=== PATIENT | male | born 1960 | race Caucasian/White ===

== ENCOUNTER 2020-04-27 19:45 | Observation (INO) | payer BC, SELFPAY ==
[2020-04-27] VITALS (14 sets, daily range): BP systolic 125–155; BP diastolic 92–110; PULSE 115–155; RESP 12–23; TEMP 36.5–36.8; O2SAT 97–100; BMI 35.1
--- NOTE | 2020-04-27 20:15 | ECG_ITS ---
Measurements Intervals [place] Rate: 118 P: [place]: 0 QRS: 9 QRSD: 98 T: 28 QT: 307 QTc: 430 Interpretive Statements ATRIAL FLUTTER/TACHYCARDIA WITH RAPID VENTRICULAR RESPONSE BASELINE ARTIFACT- I, III, AVR, AVL, AVF, V1 ABNORMAL ECG Electronically Signed On 04-28-2020 14:09:11 WASTEWATER ENGINEER by Saturnino Bowling D.O.
[2020-04-27 20:40] LABS: Basophils Absolute Auto 0.1 K/mm3 (0.0-0.1); Basophils Percent Auto 0.9 % (0.2-1.2); Eosinophils Percent Auto 0.5 % (0-4.4); Hematocrit 32.7 % (42.0-52.0); Hemoglobin 10.9 g/dL (14.0-18.0); Immature Granulocyte Absolute 0.04 K/mm3 (0.00-0.031); Immature Granulocyte Percent A 0.6 % (0-0.5); Lymphocytes Absolute Auto 2.12 K/mm3 (0.9-3.2); Lymphocytes Percent Auto 32.2 % (18.3-44.2); Mean Corpuscular HGB Conc 33.3 g/dl (32-36); Mean Corpuscular Hemoglobin 29.4 pg (26-34); Mean Corpuscular Volume 88.1 fl (80-100); Mean Platelet Volume 8.4 fl (7.4-10.4); Monocytes Absolute Auto 0.7 K/mm3 (0.1-0.6); Monocytes Percent Auto 10.8 % (2.6-8.5); Neutrophils Absolute Auto 3.6 K/mm3 (1.3-6.7); Platelet Count Result 260 k/mm3 (150-375); Red Blood Count 3.71 M/mm3 (4.6-6.20); White Blood Count 6.6 K/mm3 (4.5-10.0)
[2020-04-27 20:48] LABS: Prothrombin Time 13.6 Seconds (11.1-14.7)
[2020-04-27 20:49] LABS: Partial Thromboplastin Time 25.2 SECONDS (22.3-36.8)
[2020-04-27 20:53] LABS: Alanine Aminotransferase 31 U/L (4-50); Albumin Level 3.7 g/dL (3.5-5.1); Alkaline Phosphatase 77 U/L (38-126); Anion Gap 9 mmol/L (8-16); Aspartate Amino Transferase 46 U/L (17-59); Bilirubin,Total 0.8 mg/dL (0.2-1.3); Blood Urea Nitrogen 21 mg/dL (9-20); Calcium 8.7 mg/dL (8.4-10.2); Carbon Dioxide 27 mmol/L (22-30); Chloride 94 mmol/L (98-107); Estimated CRCL calculation 101 ml/min; Estimated Glomerular Filt Rate > 60; Glucose 141 mg/dL (75-110); Potassium 4.5 mmol/L (3.4-5.0); Sodium 130 mmol/L (137-145)
[2020-04-27] MEDS: SODIUM CHLORIDE 0.9% IV 1,000 ML 999 ML IV CONT (21:12)
--- NOTE | 2020-04-27 21:35 | ED.GENADULT ---
HPI - General Adult General Chief complaint: GI Bleed Stated complaint: Black stool Time Seen by Provider: 04/27/20 21:04 History of Present Illness HPI narrative: Patient is a 60-year-old gentleman who presents the emergency department with chief complaint of GI bleed. Patient reports he has history of a Deidre-en-Y gastric bypass and history of GI bleeds in the past. Patient states that today he started having black stool and then started feeling somewhat lightheaded particularly when he stands up. Patient states that this feels similar to when he has had GI bleeds in the past reports the last time he had to require several units of blood transfusion. Patient reports he is not on any anticoagulants Related Data Home Medications Medication Instructions Recorded Confirmed glimepiride 4 mg PO BID 04/27/20 lisinopril 20 mg PO DAILY 04/27/20 Allergies Allergy/AdvReac Type Severity Reaction Status Date / Time tetanus toxoid, adsorbed Allergy Hives Verified 04/27/20 20:40 Review of Systems Review of Systems: Narrative: A 10 system review of systems was completed on the patient and is negative except for what is stated in the HPI. Nursing and ancillary documentation was reviewed. PMFSH Comments Patient has history of hypertension and diabetes Surgical history significant for Deidre-en-Y gastric bypass Social history patient lives in [place] denies illicit drug use Exam Narrative: Exam Narrative: GENERAL: Well-appearing, well-nourished, and in no acute distress. HEAD: Normocephalic, atraumatic. EYES: PERRLA and EOMI. ENT: Nares clear, no rhinorrhea or epistaxis. Mucous membranes moist. NECK: Supple. CHEST: Clear to auscultation. No respiratory distress. HEART: Regular rate and rhythm. No murmur heard. Normal peripheral pulses. ABDOMEN: Soft, nontender, nondistended, normal active bowel sounds. Patient is guaiac positive on rectal exam EXTREMITIES: Normal range of motion. No edema. SKIN: Warm, dry, no rash. NEURO: No focal deficits. Alert and oriented x3. PSYCH: Normal mood and affect. Course Course Emergency Course: Patient's orthostatics showed that his heart rate went from 139 255 with standing. Patient was given a liter of normal saline for fluid resuscitation. Given his hemoglobin is currently 10 and we do not know his normal baseline hemoglobin Case was discussed with the hospitalist the patient will be admitted to the hospitalist service. Vital Signs Vital signs: Vital Signs Temperature 36.5 C 04/27/20 19:52 Pulse Rate 152 H 04/27/20 19:52 Respiratory Rate 16 04/27/20 19:52 Blood Pressure 155/100 H 04/27/20 19:52 Pulse Oximetry 100 04/27/20 19:52 Temperature 36.5 C 04/27/20 19:52 Pulse Rate 120 H 04/27/20 22:15 Respiratory Rate 18 04/27/20 22:15 Blood Pressure 146/110 H 04/27/20 22:05 Pulse Oximetry 100 04/27/20 22:15 Medical Decision Making Vital Signs Vital Signs: Vital Signs Temperature 36.5 C 04/27/20 19:52 Pulse Rate 152 H 04/27/20 19:52 Respiratory Rate 16 04/27/20 19:52 Blood Pressure 155/100 H 04/27/20 19:52 Pulse Oximetry 100 04/27/20 19:52 Temperature 36.5 C 04/27/20 19:52 Pulse Rate 120 H 04/27/20 22:15 Respiratory Rate 18 04/27/20 22:15 Blood Pressure 146/110 H 04/27/20 22:05 Pulse Oximetry 100 04/27/20 22:15 Lab Data Result diagrams: 04/27/20 21:51 04/27/20 20:30 Labs: Lab Results 04/27/20 04/27/20 04/27/20 Range/Units 20:27 20:27 20:30 WBC 6.6 (4.5-10.0) K/mm3 RBC 3.71 L (4.6-6.20) M/mm3 Hgb 10.9 L (14.0-18.0) g/dL Hct 32.7 L (42.0-52.0) % MCV 88.1 (80-100) fl MCH 29.4 (26-34) pg MCHC 33.3 (32-36) g/dl RDW 15.0 H (11.5-14.5) % Plt Count 260 (150-375) k/mm3 MPV 8.4 (7.4-10.4) fl Immature Gran % (Auto) 0.6 H (0-0.5) % Neut % (Auto) 55.0 (45.5-73.1) % Lymph % (Auto) 32.2 (18.3-44.2) % [place] % (Auto) 10.8
[2020-04-27 22:07] LABS: Hematocrit 32.6 % (42.0-52.0); Hemoglobin 10.9 g/dL (14.0-18.0)
--- NOTE | 2020-04-27 22:55 | ADMGEN ---
This patient, Richard Ramirez, was admitted to [facility] Surg Room 302-01. Patient/family oriented to hospital policies and general routines including ID bracelet, bed and alarms, visiting hours, pain management, procedures, bathroom and other care routines, personal items, smoking policy, room service/diet, and visiting hours. Information on how to activate the Rapid Response Team has been discussed. Patient/Family are encouraged to report perceived risks to care and to ask questions if they do not understand what they are told or what they should do.
--- NOTE | 2020-04-27 23:59 | ECG_ITS ---
Measurements Intervals [place] Rate: 129 P: [place]: 0 QRS: 10 QRSD: 97 T: 17 QT: 289 QTc: 424 Interpretive Statements ATRIAL FLUTTER/TACHYCARDIA WITH RAPID VENTRICULAR RESPONSE BASELINE ARTIFACT- I, II, III, AVR, AVL, AVF ABNORMAL ECG Electronically Signed On 04-28-2020 14:10:24 DETAIL SERGEANT by Saturnino Bowling D.O.
[2020-04-28] VITALS (19 sets, daily range): BP systolic 120–148; BP diastolic 74–94; PULSE 62–150; RESP 16–20; TEMP 36.4–36.8; O2SAT 95–100
--- NOTE | 2020-04-28 | ECHO_ITS ---
Patient Info Name: Richard Ramirez Age: 60 years : 1960 Gender: Male Ht: 71 in Wt: 251 lbs BSA: 2.43 m2 HR: 70 bpm BP: 134 / 81 mmHg Technical Quality: Good Exam Date: 04/28/2020 2:42 PM Exam Location: [facility] Pulmonary Patient Status: Outpatient Admit Date: 04/27/2020 Staff Ordering Physician: Abbi Stern PA-C Sociology Research Assistant: Walter Holloway RDCS, RT Attending Provider: Lilia Cespedes DO Exam Type: CA echo doppler color flow Study Info Indications I48.1 - Persistent atrial fibrillation Complete two-dimensional, color flow and Doppler transthoracic echocardiogram is performed. Strain analysis performed. Summary 1. Complete two-dimensional, color flow and Doppler transthoracic echocardiogram is performed. 2. Left ventricular systolic function is normal, estimated at 40-45%. 3. There is mildly increased left ventricular wall thickness. 4. The left ventricular diastolic function is abnormal. 5. There is mild to moderate mitral valve regurgitation. 6. There is mild tricuspid valve regurgitation. 7. No pulmonary hypertension, estimated pulmonary arterial systolic pressure is 31 mmHg. 8. Atrial fibrillation with Heart rate 80-90. Left Ventricle Left ventricular chamber dimension is normal. Left ventricular systolic function is normal, estimated at 40-45%. There is mildly increased left ventricular wall thickness. Left ventricular septal wall motion is normal. The left ventricular diastolic function is abnormal. Right Ventricle Right ventricular chamber dimension is normal. Right ventricular systolic function is normal. Left Atria Left atrial chamber dimension is normal. Right Atria Right atrial chamber dimension is normal. Atrial Septum Intact interatrial septum visualized by color flow imaging. Aortic Valve The aortic valve is trileaflet. There is no aortic valve sclerosis. There is no aortic valve stenosis. There is no aortic valve regurgitation. Pulmonic Valve The pulmonic valve is not well visualized. There is no pulmonic valve stenosis. There is no pulmonic regurgitation. Mitral Valve The mitral valve has normal leaflets. There is no mitral valve stenosis. There is mild to moderate mitral valve regurgitation. Tricuspid Valve The tricuspid valve leaflets are normal. There is no significant tricuspid valve stenosis. There is mild tricuspid valve regurgitation. No pulmonary hypertension, estimated pulmonary arterial systolic pressure is 31 mmHg. Pericardium/Pleural The pericardium appears normal. There is no pericardial effusion. Aorta The aortic root size at the sinus of Valsalva is normal. The prox ascending aorta size is not well visualized. Left Ventricular Outflow Tract Name Value Normal LVOT 2D LVOT Diameter 2.0 cm LVOT Doppler LVOT Peak Gradient 2 mmHg LVOT Mean Gradient 1 mmHg LVOT VTI 13 cm LVOT VTI/AV VTI Ratio 0.8 LVOT Stroke Volume 42 ml LVOT CO
--- NOTE | 2020-04-28 00:18 | PM.IMHP ---
H&P: HPI History of Present Illness Date/Time: 04/28/20 00:18 Chief Complaint: Melena Narrative: Richard Ramirez is a 60 year old male with past medical history of type 2 diabetes, hypertension, osteoarthritis, iron deficiency anemia, history of Deidre-en-Y gastric bypass 2006, history of gastric ulcer presents to the ED with complaints of melena. Patient is from out of town [place], and is visiting the area. Patient states he has had a Deidre-en-Y gastric bypass in 2006 and developed ulcers from Motrin which he treated with PPIs. His PCP to come off the PPI since he was doing well. He uses Tylenol and knee injections now instead of NSAIDs for his osteoarthritis pain. Today he noticed his stools change in color from brown to black which he recognized as melena. He states his dark stools do not smell like they did before when he had melena previously. He also started feeling lightheaded and a little dizzy. Patient takes Amaryl for diabetes and lisinopril for hypertension. He has had history of nose bleeds as well. He previously had anemia treated with IV infusions of iron, he does not take any p.o. supplements. In the ED: Stool guaiac positive. Hemoglobin 10.9, unknown baseline. Coags within normal limits. Patient admitted for observation for suspected upper GI bleed. Review of Systems Review of Systems: Narrative: Constitutional: No Fever, No Chills, No Night Sweats, endorses generalized weakness. ENT/Mouth: No Hearing Changes, No Ear Pain, No Nasal Congestion, No Sinus Pain, No Hoarseness, No sore throat, No Rhinorrhea, No Swallowing Difficulty Eyes: No Eye Pain, No Redness, No Vision Changes Cardiovascular: No Palpitations, No Dyspnea on Exertion, No Orthopnea, No Claudication, No Edema. Substernal discomfort. Respiratory: No Cough, No Sputum, No Wheezing, No Shortness of Breath Gastrointestinal: No Nausea, No Vomiting, No Diarrhea, No Constipation. Endorses Epigastric discomfort worse when lying down, melena. Genitourinary: No Dysuria, No Urinary Frequency, No Hematuria, No Urinary Incontinence, No Urgency Musculoskeletal: No Arthralgias, No Myalgias, No Joint Swelling, No Joint Stiffness, No Back Pain Skin: No Skin Lesions, No Pruritis, No Hair Changes Neuro: No focal Weakness, No Numbness, No Paresthesias, No Loss of Consciousness, No Syncope, No Headache. Endorses some lightheadedness, dizziness. Psych: No Anxiety/Panic, No Depression, No Insomnia Lymph: No Adenopathy Endocrine: No Polyuria, No Polydipsia, No Temperature Intolerance [facility] Past Medical History Medical History (Updated 04/28/20 @ 02:06 by Lilia Cespedes DO) Essential hypertension Right ankle injury Type 2 diabetes mellitus Upper gastrointestinal bleed Surgical History Surgical History (Updated 04/28/20 @ 01:48 by Lilia Cespedes DO) History of back surgery History of Deidre-en-Y gastric bypass Family History Family History Mother Ovarian cancer Throat cancer Diabetes mellitus Congestive heart failure Chronic obstructive pulmonary disease Social History Social History (Updated 04/28/20 @ 01:49 by Lilia Cespedes DO) Social History: Patient is active, independent. 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
--- NOTE | 2020-04-28 00:20 | PC.NURSE ---
Respiratory at bedside performing EKG. Sharon in Lab, notified per telephone of new order for Troponin level.
[2020-04-28] MEDS: SODIUM CHLORIDE 0.9% IV 1,000 ML 125 ML IV CONT ×2 (00:30→08:19)
[2020-04-28] MEDS: METOPROLOL TARTRATE INJ 5 MG/5 ML VIAL IV PUSH (00:33)
[2020-04-28 00:52] LABS: Glucose Point of Care 150 (65-105)
[2020-04-28 01:10] LABS: Troponin I 0.017 ng/mL (0.000-0.034)
[2020-04-28 03:23] LABS: Hematocrit 29.5 % (42.0-52.0); Hemoglobin 9.6 g/dL (14.0-18.0); Immature Reticulocyte Fraction 27.8 % (3.0-15.9); Reticulocyte Hemoglobin Conten 31.3 pg (28.2-35.7); Reticulocyte Percent 2.42 % (0.7-4.3); Reticulocytes Absolute 0.08 B/L (32.2-175.7)
[2020-04-28 03:45] LABS: Transferrin 199 mg/dL (206-381)
[2020-04-28 03:48] LABS: Hemoglobin A1C 5.8 % (<5.7)
[2020-04-28 03:50] LABS: Troponin I 0.018 ng/mL (0.000-0.034)
[2020-04-28 04:43] LABS: Folic Acid 11.1 ng/mL (2.76->20)
[2020-04-28 05:31] LABS: Iron 55 ug/dL (49-181)
[2020-04-28 05:41] LABS: Percent Iron Saturation 18 % (20-50)
--- NOTE | 2020-04-28 06:00 | ECG_ITS ---
Measurements Intervals [place] Rate: 123 P: [place]: 0 QRS: 6 QRSD: 101 T: 16 QT: 301 QTc: 432 Interpretive Statements ATRIAL FLUTTER/TACHYCARDIA WITH RAPID VENTRICULAR RESPONSE BASELINE ARTIFACT- III, AVF ABNORMAL ECG Electronically Signed On 04-28-2020 14:13:34 OFFICIAL GREETER by Saturnino Bowling D.O.
[2020-04-28] MEDS: PANTOPRAZOLE SODIUM IV 40 MG VIAL IV PUSH ×2 (08:15→20:09)
[2020-04-28 08:49] LABS: Anion Gap 8 mmol/L (8-16); Blood Urea Nitrogen 21 mg/dL (9-20); Calcium 7.9 mg/dL (8.4-10.2); Carbon Dioxide 23 mmol/L (22-30); Chloride 99 mmol/L (98-107); Estimated CRCL calculation 113 ml/min; Estimated Glomerular Filt Rate > 60; Glucose 144 mg/dL (75-110); Magnesium 1.8 mg/dL (1.6-2.3); Sodium 130 mmol/L (137-145)
[2020-04-28 09:55] LABS: Hematocrit 28.6 % (42.0-52.0); Hemoglobin 9.6 g/dL (14.0-18.0)
--- NOTE | 2020-04-28 12:14 | WPDGICN ---
Assessment and Plan Additional Plan A. Anemia with melena/guaiac positive stools with epigastric pain concerns for upper GI bleed -Hx of GI bleed secondary to ulcers 7 years ago secondary to NSAIDs. He is no longer on NSAIDs. -Hx of deidre-en-y bypass in 2006 -Melena this AM noted -hgb 9.6/hct 29.5 -Guaiac positive -iron 55, TIBC 299, iron sat 18%, ferritin 15 -b12 177 and folate 11 -EGD 04/29/[address] Adrian. NPO after midnight. Hold AM blood thinners -New onset afib with RVR, spoke with hospitalist and would like rate controlled -Monitor H&H; transfuse as needed -PPI IV BID -Replace iron and b12 The procedure of upper endoscopy, its indications, alternatives of barium studies and risks including perforation, bleeding, infection, reaction to medication as well as the possible need for blood or surgery were discussed with the patient. Patient voices understanding, agrees to proceed and provides informed consent. GI Consult Note Consult date/time: 04/28/20 12:14 HPI: This is an 60 year old patient with a history of gastric bypass, DM, Hypertension, OA, LETA, gastric ulcers, colon polyps, and back surgery who now presents for evaluation for dark stools and weakness. Patient is seen at the request of the Hospitalist service to evaluate for anemia and melena. Patient reports yesterday he was some having generalized weakness while shopping. He noticed one black stool yesterday prior to coming into the ER. He reports hx of bleeding ulcer around 7 years ago and at that time he had an EGD but no intervention was needed at that time as it had stopped bleeding. He was taken NSAIDs at that time due to knee pain. Hx of deidre-en-y in 2006. He reports last colonoscopy was 1 year ago and had one small polyp was removed. He is out of town from [place]. He does say yesterday he had noted some epigastric burning. He denies NSAIDs or ASA use. Denies iron OTC. Patient denies abdominal pain, nausea or vomiting, trouble swallowing, bloating, loss of appetite or weight, early satiety, heartburn, diarrhea or constipation, rectal bleeding or melena. Patient denies fever, jaundice, scleral icterus, dark urine, light stool, itching, hot or cold intolerance, chest pain, shortness of breath at rest, hematuria, dysuria, new cough or visual changes, easy bruising, tingling of the skin, bone pain or tremors. No history of endocarditis, rheumatic fever, dental prophylaxis, heart valve surgery, bleeding disorder or joint replacement. [facility] Past Medical History Medical History (Updated 04/28/20 @ 02:06 by Lilia Cespedes DO) Essential hypertension Right ankle injury Type 2 diabetes mellitus Upper gastrointestinal bleed Surgical History Surgical History (Updated 04/28/20 @ 01:48 by Lilia Cespedes DO) History of back surgery History of Deidre-en-Y gastric bypass Family History Family History Mother Ovarian cancer Throat cancer Diabetes mellitus Congestive heart failure Chronic obstructive pulmonary disease Social History Social History (Updated 04/28/20 @ 01:49 by Lilia Cespedes DO) Social History: Patient is active, independent. 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
[2020-04-28] MEDS: METOPROLOL TARTRATE 25 MG TABLET PO ×2 (12:31→20:07)
--- NOTE | 2020-04-28 12:47 | PM.IMPN ---
Progress Note: A&P Assessment and Plan (1) Acute GI bleeding: Code(s): K92.2 - Gastrointestinal hemorrhage, unspecified Status: Acute Assessment and Plan: Patient with history of Deidre-en-Y bypass and prior upper GI bleed from NSAID abuse presents with melena that began 04/27/30. Appreciate GI recommendations; noted plan to proceed with EGD 04/29, NPO after midnight. Continue BID protonix. Hgb low but stable for now, continue to monitor. Avoid NSAIDs; Use tylenol as needed for pain; antiemetics as needed. (2) Atrial fibrillation: Qualifiers: Atrial fibrillation type: unspecified Qualified Code(s): I48.91 - Unspecified atrial fibrillation Code(s): I48.91 - Unspecified atrial fibrillation Status: Acute Assessment and Plan: New a fib with intermittent rapid rates. Suspect precipitated by acute illness although it is unclear how long this rhythm has been present since he is asymptomatic and it was present on arrival. Rates have improved with IV lopressor. Since he can eat today, start oral Lopressor and continue to monitor with cardiac telemetry. Rates are improved in 80s bpm this evening. Not a candidate for systemic anticoagulation due to acute GI bleeding. Obtain echocardiogram. Will recommend he establish with a administrative staff supervisor once he gets back home to [place]. (3) Anemia: Qualifiers: Anemia type: unspecified type Qualified Code(s): D64.9 - Anemia, unspecified Code(s): D64.9 - Anemia, unspecified Status: Acute Assessment and Plan: Normocytic, suspect secondary to acute blood loss anemia from upper GI bleeding superimposed on iron deficiency. Supplement iron and B12. Monitor CBC, transfuse as needed. (4) Essential hypertension: Code(s): I10 - Essential (primary) hypertension Status: Chronic Assessment and Plan: BP stable, last 121/74 this afternoon. His home lisinopril was held since he was NPO this morning, reassess in AM. (5) Type 2 diabetes mellitus: Code(s): E11.9 - Type 2 diabetes mellitus without complications Status: Chronic Assessment and Plan: Hgb A1c 5.8%; resume his home Amaryl. Continue to monitor with accu-cheks and adjust treatment as needed, cover with SSI. Subjective Date/time seen: 04/28/20 12:00 Interval history: Mr. Ramirez is a 60yo M admitted for anemia and melena. He is also noted to have new A fib with intermittent rapid rates today with which he is asymptomatic. He denies chest pain, palpitations, shortness of breath or dizziness. He denies abdominal pain or nausea; had some epigastric discomfort yesterday which is resolved. He had two episodes of melena yesterday and another this morning. Review of Systems Review of Systems: All systems reviewed & are unremarkable except as noted in HPI and below Exam Narrative: Exam Narrative: General: Male resting supine in bed in no acute distress. HEENT: Normocephalic, EOMI, sclerae anicteric. Cardiovascular: Rate is normal at present, rhythm irregular. Telemetry review shows A fib rates variable between 90s as high as 150s when he walked to restroom. Respiratory: Lungs clear to auscultation bilaterally. Respirations even and non-labored. Abdomen: Soft, non-tender, non-distended, bowel sounds present. Extremities: Peripheral pulses intact. No edema. Neuro: No focal neurological deficits. Speech is clear. Objective Data Vital Signs Vital Signs: Last Vital Signs Temp 97.9 F 04/28/20 14:00 Pulse 73 04/28/20 14:00 Resp 16 04/28/20 14:00 BP 121/74 04/28/20 14:00 Pulse Ox 100 04/28/20 14:00 Intake/Output Intake/Output: Intake & Output 04/25/20 04/26/20 04/27/20 04/28/20 23:59 23:59 23:59 23:59 I
[2020-04-28 16:16] LABS: Hematocrit 27.7 % (42.0-52.0); Hemoglobin 9.1 g/dL (14.0-18.0)
[2020-04-28] MEDS: CYANOCOBALAMIN INJ 1,000 MCG/ML VIAL 1000 MCG IM (17:14)
[2020-04-28] MEDS: GLIMEPIRIDE 2 MG TABLET 4 MG PO (17:14)
[2020-04-28 18:06] LABS: Glucose Point of Care 114 (65-105)
[2020-04-28 21:11] LABS: Glucose Point of Care 135 (65-105)
[2020-04-29] VITALS (15 sets, daily range): BP systolic 84–139; BP diastolic 59–102; PULSE 70–110; RESP 16–22; TEMP 36–36.6; O2SAT 100
[2020-04-29 06:54] LABS: Basophils Percent Auto 1.2 % (0.2-1.2); Eosinophils Percent Auto 1.2 % (0-4.4); Hematocrit 29.8 % (42.0-52.0); Hemoglobin 9.7 g/dL (14.0-18.0); Immature Granulocyte Absolute 0.03 K/mm3 (0.00-0.031); Immature Granulocyte Percent A 0.9 % (0-0.5); Lymphocytes Absolute Auto 1.02 K/mm3 (0.9-3.2); Lymphocytes Percent Auto 29.4 % (18.3-44.2); Mean Corpuscular HGB Conc 32.6 g/dl (32-36); Mean Corpuscular Hemoglobin 29.2 pg (26-34); Mean Corpuscular Volume 89.8 fl (80-100); Mean Platelet Volume 8.8 fl (7.4-10.4); Monocytes Absolute Auto 0.4 K/mm3 (0.1-0.6); Neutrophils Percent Auto 56.3 % (45.5-73.1); Platelet Count Result 206 k/mm3 (150-375); Red Blood Count 3.32 M/mm3 (4.6-6.20); Red Cell Distribution Width 15.5 % (11.5-14.5); White Blood Count 3.5 K/mm3 (4.5-10.0)
--- NOTE | 2020-04-29 07:11 | WPDANESEPPF ---
Anes - Initial Pre Proc Eval Procedure: Operation Date: 04/29/20 09:00 Proposed Procedures p Esophagogastroduodenoscopy - Marcelo Adrian MD Date/Time: 04/29/20 07:11 Surgeon: Jeromy Cespedes DO Pre Op Diagnosis: GI bleeding Patient Data Age: 60 Gender: M Height: 1.8 m Weight: 114.3 kg Last Vital Signs Temp 36.6 C 04/29/20 05:41 Pulse 72 04/29/20 05:41 Resp 18 04/29/20 05:41 BP 119/74 04/29/20 05:41 Pulse Ox 100 04/29/20 05:41 Allergies Allergy/AdvReac Type Severity Reaction Status Date / Time tetanus toxoid, adsorbed Allergy Hives Verified 04/27/20 23:19 Home Medications Medication Instructions Recorded Confirmed Type glimepiride 4 mg PO BID 04/27/20 04/27/20 History lisinopril 20 mg PO DAILY 04/27/20 04/27/20 History Laboratory Tests 04/27/20 04/28/20 04/28/20 20:27 00:26 09:49 WBC RBC Hgb 9.6 g/dL L g/dL (14.0-18.0) Hct 28.6 % L % (42.0-52.0) MCV MCH MCHC RDW Plt Count MPV Immature Gran % (Auto) Neut % (Auto) Lymph % (Auto) [place] % (Auto) Eos % (Auto) Baso % (Auto) Lymph # (Auto) [place] # (Auto) Eos # (Auto) Baso # (Auto) Abs Immat Gran (auto) Absolute Neuts (auto) Absolute Nucleated RBC Nucleated RBC % Sodium 130 mmol/L L mmol/L (137-145) Potassium 4.0 mmol/L mmol/L (3.4-5.0) Chloride 99 mmol/L mmol/L (98-107) Carbon Dioxide 23 mmol/L mmol/L (22-30) Anion Gap 8 mmol/L mmol/L (8-16) BUN 21 mg/dL H mg/dL (9-20) Creatinine 0.80 mg/dL mg/dL (0.7-1.3) Estim Creat Clear Calc 113 ml/min ml/min Estimated GFR > 60 (59 - ) Glucose 144 mg/dL H mg/dL (75-110) POC Capillary Glucose Calcium 7.9 mg/dL L mg/dL (8.4-10.2) Phosphorus Magnesium 1.8 mg/dL mg/dL (1.6-2.3) Total Bilirubin AST ALT Alkaline Phosphatase Total Protein Albumin Blood Type A Positive Antibody Screen Positive Antibody Identification Anti-Lane Antigen Identification Gemini Antigen - NEGATIVE ALFONZO, IgG Interpret Not Performed ALFONZO, Poly Interpret Negative ALFONZO, Complement Interp Not Performed Enhanced Crossmatch See Detail 04/28/20 04/28/20 04/28/20 15:54 17:16 20:18 WBC RBC Hgb 9.1 g/dL L g/dL (14.0-18.0) Hct 27.7 % L % (42.0-52.0) MCV MCH MCHC RDW Plt Count MPV Immature Gran % (Auto) Neut % (Auto) Lymph % (Auto) [place] % (Auto) Eos % (Auto) Baso % (Auto) Lymph # (Auto) [place] # (Auto) Eos # (Auto) Baso # (Auto) Abs Immat Gran (auto) Absolute Neuts (auto) Absolute Nucleated RBC Nucleated RBC % Sodium Potassium Chloride Carbon Dioxide Anion Gap BUN Creatinine Estim Creat Clear Calc Estimated GFR Glucose POC Capillary Glucose 114 mg/dl H mg/dl 135 mg/dl H mg/dl (65-105) (65-105) Calcium Phosphorus Magnesium Total Bilirubin AST ALT Alkaline Phosphatase Total Protein Albumin Blood Type Antibody Screen Antibody Identification
[2020-04-29 07:29] LABS: Alanine Aminotransferase 25 U/L (4-50); Alkaline Phosphatase 68 U/L (38-126); Anion Gap 6 mmol/L (8-16); Aspartate Amino Transferase 58 U/L (17-59); Bilirubin,Total 0.7 mg/dL (0.2-1.3); Blood Urea Nitrogen 12 mg/dL (9-20); Calcium 8.1 mg/dL (8.4-10.2); Carbon Dioxide 26 mmol/L (22-30); Chloride 100 mmol/L (98-107); Estimated CRCL calculation 91 ml/min; Estimated Glomerular Filt Rate > 60; Glucose 98 mg/dL (75-110); Magnesium 2.1 mg/dL (1.6-2.3); Phosphorus 3.7 mg/dL (2.5-4.5); Potassium 4.2 mmol/L (3.4-5.0); Sodium 132 mmol/L (137-145)
[2020-04-29 08:08] LABS: Glucose Point of Care 103 (65-105)
[2020-04-29] MEDS: LACTATED RINGERS 1,000 ML 150 ML IV CONT ×2 (08:30→13:34)
--- NOTE | 2020-04-29 10:10 | WPDGIPROGNO ---
Progress Note: A&P Additional Plan GI [facility] 29 Apr 2020 I have personally seen and examined this patient and agree with the above note. VSS soft/NT Pertinent Labs: Hct 27->30. LFT's normal. Assessment and Plan: Iron/B12 deficiency anemia with melena, guaiac positive stools with epigastric pain concerns for upper GI bleed: -Hx of GI bleed secondary to ulcers 7 years ago secondary to NSAIDs. He is no longer on NSAIDs -Hx of rory-en-y bypass in 2006 -Iron 55, TIBC 299, iron sat 18%, ferritin 15, B12 177 and folate 11 -EGD 04/29/20 -New onset afib with RVR, spoke with hospitalist and would like rate controlled -Monitor H&H; transfuse as needed -PPI IV BID -Replace iron and b12 parenterally KAMRAN Longoria [phone] Subjective Date/time seen: 04/29/20 10:10 Objective Data Vital Signs Vital Signs: Vital Signs - 24 hr 04/28/20 10:43 04/28/20 12:00 04/28/20 12:31 Temperature Pulse Rate 107 H 85 Respiratory Rate Blood Pressure Pulse Oximetry 95 04/28/20 14:00 04/28/20 16:00 04/28/20 20:00 Temperature 36.6 C Pulse Rate 73 90 80 Respiratory Rate 16 Blood Pressure 121/74 Pulse Oximetry 100 04/28/20 20:07 04/28/20 22:00 04/29/20 00:00 Temperature 36.5 C Pulse Rate 80 82 70 Respiratory Rate 18 Blood Pressure 136/88 Pulse Oximetry 100 04/29/20 04:00 04/29/20 05:41 04/29/20 08:00 Temperature 36.6 C Pulse Rate 72 72 80 Respiratory Rate 18 Blood Pressure 119/74 Pulse Oximetry 100 04/29/20 08:31 Temperature 36.0 C L Pulse Rate 110 H Respiratory Rate 16 Blood Pressure 139/102 H Pulse Oximetry 100 Intake/Output Intake/Output: Intake & Output 04/26/20 04/27/20 04/28/20 04/29/20 23:59 23:59 23:59 23:59 Intake Total 1000 3420 1000 Output Total 1925 200 Balance 1000 1495 800 Meds/Results Medications: Active Medications Generic Name Dose Route Start Last Admin Trade Name Freq PRN Reason Stop Dose Admin Dextrose 12.5 gm 04/28/20 13:15 Dextrose 50% 25 Gm/50 Ml Syringe IV PUSH PRN PRN Hypoglycemia Protocol Ferrous Sulfate 324 mg 04/29/20 08:00 Ferrous Sulfate 324 Mg Tablet PO DAILY@0800 JUAN Glimepiride 4 mg 04/28/20 17:00 04/28/20 17:14 Glimepiride 2 Mg Tablet PO 4 mg BIDWM JUAN Administration Glucagon 1 mg 04/28/20 13:15 Glucagon For Inj 1 Mg Vial IM PRN PRN Hypoglycemia Protocol Glucose 15 gm 04/28/20 13:15 Glucose Oral Gel 15 Gm Of Glucse In 37.5 Gm Tube PO PRN PRN Hypoglycemia Protocol Dextrose 1,000 mls @ 100 mls/hr 04/28/20 13:15 Dextrose 5% 1,000 Ml IVPB PRN PRN Hypoglycemia Protocol Lactated Ringer's 1,000 mls @ 150 mls/hr 04/29/20 07:10 04/29/20 08:30 Lr - Lactated Ringers Iv IV CONT 150 mls/hr .[id number] JUAN Administration Metoprolol Tartrate 25 mg 04/28/20 21:00 04/28/20 20:07 Metoprolol Tartrate 25 Mg Tablet PO 25 mg Q12HR JUAN Administration Ondansetron HCl 4 mg 04/27/20 21:32 Ondansetron Inj 4 Mg/2 Ml Vial IV PUSH Q4H PRN Nausea Pantoprazole Sodium 40 mg 04/28/20 09:00 04/28/20 20:09 Pantoprazole Sodium Iv 40 Mg Vial IV PUSH 40 mg Q12HR JUAN Administration Labs Labs: Laboratory Results - last 24 hr 04/27/20 04/28/20 04/28/20 20:27 15:54 17:16 WBC RBC Hgb 9.1 L Hct 27.7 L MCV MCH MCHC RDW Plt Count MPV Immature Gran % (Auto) Neut % (Auto) Lymph % (Auto) [place] % (Auto) Eos % (Auto) Baso % (Auto) Lymph # (Auto) [place] # (Auto) Eos # (Auto) Baso # (Auto) Abs Immat Gran (auto) Absolute Neuts (auto) Absolute Nucleated RBC Nucleated RBC % Sodium Potassium Chloride Carbon Dioxide Anion Gap BUN Creatinine Estim Creat Clear Calc Estimated GFR Glucose POC Capillary Glucose 114 H Calcium Phosphorus Magnesium T
[2020-04-29] MEDS: SIMETHICONE ORAL SUSPENSION 20 MG/0.3 ML 30 ML BOTTLE PO (10:21)
[2020-04-29] MEDS: PANTOPRAZOLE SODIUM IV 40 MG VIAL IV PUSH (11:16)
[2020-04-29] MEDS: IRON SUCROSE COMPLEX 200 MG in SODIUM CHLORIDE 0.9% IV 50 ML 120 MG IVPB (11:16)
[2020-04-29] MEDS: GLIMEPIRIDE 2 MG TABLET 4 MG PO ×2 (11:16→17:18)
[2020-04-29] MEDS: FERROUS SULFATE 324 MG TABLET PO (11:16)
[2020-04-29 12:34] LABS: Glucose Point of Care 119 (65-105)
[2020-04-29] MEDS: SUCRALFATE 1 GM TABLET PO ×3 (13:34→21:41)
--- NOTE | 2020-04-29 14:31 | PM.IMPN ---
Progress Note: A&P Assessment and Plan (1) Acute GI bleeding: Code(s): K92.2 - Gastrointestinal hemorrhage, unspecified Status: Acute Assessment and Plan: Patient with history of Deidre-en-Y bypass and prior upper GI bleed from NSAID abuse presents with melena that began 04/27/30. Appreciate GI recommendations; s/p EGD this AM 04/29. GI report pending however I am notified patient was found to have small bowel ulcer that required cautery. Hgb low but stable for now, recheck in AM. Avoid NSAIDs; Use tylenol as needed for pain; antiemetics as needed. He is very eager to discharge however given the extent of his bleeding it seems safest to monitor overnight and consider discharge tomorrow if symptoms and Hgb are stable. Clear liquids through this evening per GI recommendation. (2) Atrial fibrillation: Qualifiers: Atrial fibrillation type: unspecified Qualified Code(s): I48.91 - Unspecified atrial fibrillation Code(s): I48.91 - Unspecified atrial fibrillation Status: Acute Assessment and Plan: New a fib with intermittent rapid rates, improved. Suspect precipitated by acute illness although it is unclear how long this rhythm has been present since he is asymptomatic and it was present on arrival. Rates have improved with Lopressor. Not a candidate for systemic anticoagulation due to acute GI bleeding. [id number] score of 1, he may not require anticoagulation at this time anyway. Echocardiogram shows abnormal diastolic function with normal LV systolic function EF 40-45% with mild mitral and tricuspid regurg. 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 (3) Anemia: Qualifiers: Anemia type: unspecified type Qualified Code(s): D64.9 - Anemia, unspecified Code(s): D64.9 - Anemia, unspecified Status: Acute Assessment and Plan: Normocytic, suspect secondary to acute blood loss anemia from upper GI bleeding superimposed on iron deficiency. Supplement iron and B12. IV venofer today. Monitor CBC, transfuse as needed. (4) Essential hypertension: Code(s): I10 - Essential (primary) hypertension Status: Chronic Assessment and Plan: BP low in GI lab; still on lower end but improved a bit last 125/91. Home lisinopril held. Monitor BP and adjust treatment as needed. (5) Type 2 diabetes mellitus: Code(s): E11.9 - Type 2 diabetes mellitus without complications Status: Chronic Assessment and Plan: Hgb A1c 5.8%; resume his home Amaryl. Continue to monitor with accu-cheks and adjust treatment as needed, cover with SSI. Subjective Date/time seen: 04/29/20 1330 Interval history: Mr. Ramirez is a 60yo M admitted for anemia and melena. He is also noted to have new A fib with intermittent rapid rates with which he is asymptomatic. He is seen after EGD this afternoon and tells me he feels great. He denies chest pain, palpitations, shortness of breath or dizziness. He denies abdominal pain or nausea. No BM today so far, last was yesterday and was frankly melanotic. He is very eager for discharge. Review of Systems Review of Systems: All systems reviewed & are unremarkable except as noted in HPI and below Exam Narrative: Exam Narrative: General: Male resting supine in bed in no acute distress. HEENT: Normocephalic, EOMI, sclerae anicteric. Cardiovascular: Rate is normal at present, rhythm irregular. Telemetry review shows A fib rates variable in 80s-90s bpm. Respiratory: Lungs clear to auscultation bilaterally. Respirations even and non-labored. Abdomen: Soft, non-tender, non-distended, bowel sounds present. Extremities: Peripheral pulses intact. No edema. Neuro: No focal neurological de
[2020-04-29 18:16] LABS: Glucose Point of Care 133 (65-105)
--- NOTE | 2020-04-29 19:26 | OP_ITS ---
DATE OF PROCEDURE: 04/29/2020 PROCEDURE: Upper endoscopy. INDICATION: Iron and B12 deficiency anemia with melena, heme-positive stool, and epigastric pain. POSTOPERATIVE DIAGNOSIS: Marginal ulcer, cauterized. SEDATION: Per anesthesia. DESCRIPTION OF PROCEDURE: With the patient in the left lateral decubitus position, the Fuji upper endoscope was used to easily intubate the patient's esophagus and advanced to the small bowel and duodenum. Careful inspection of the mucosa was made upon insertion and withdrawal of the endoscope with retro-flexion in the gastric remnant. FINDINGS: The esophagus was normal. SC Jx at 40 cm. Stomach was postsurgical in nature. There was some type of anastomosis that had a 3 cm white-based ulcer that was oozing blood on the small bowel side of the anastomosis. This was treated with multiple applications of the 7-Japanese gold probe with complete thermal ablation. There was no bleeding at the end of the case. The remainder of the gastric remnant was unremarkable. There were no gastric ulcerations. No significant gastritis. No masses or AVMs. I was able to see the [place] stomach and was able to go through the pylorus into the duodenum, which was completely normal into the bulb, 2nd and 3rd portion. The duodenum was evaluated to the extent of the endoscope. The Deidre limb was also cannulated to the extent of the endoscope and aside from the anastomotic ulcer was otherwise normal. LABORATORY DATA: Hematocrit 30. LFTs are normal today. ASSESSMENT/PLAN: Iron and B12 deficiency with melena, heme-positive stool, epigastric pain and concern for upper GI bleed: - EGD 04-29-2020 with anastomotic ulcer at the Deidre limb - This ulcer was actively oozing and was treated with 7-Japanese gold probe with complete thermal ablation and cauterization - Iron is 55, TIBC 299, iron saturation 18%. Ferritin 15, B12 177, and folate 11 - Care with aspirin, NSAIDS and anticoagulants - Protonix 40 mg po BID - Carafate 1 g achs x 1 month - Replete iron and B12 parenterally-> po iron as OP - Repeat EGD in 8 weeks to document healing - If ulcer persists may need surgical revision Thank you for allowing me to share in the care of this patient. I will continue to follow. Marcelo Adrian MD [phone] D I MT: Mike EMERY
[2020-04-29] MEDS: PANTOPRAZOLE 40 MG TABLET PO (21:41)
[2020-04-29] MEDS: METOPROLOL TARTRATE 25 MG TABLET PO (21:42)
[2020-04-29 22:05] LABS: Glucose Point of Care 69 (65-105)
[2020-04-30] VITALS: BP 121/81; PULSE 69; RESP 18; TEMP 36.7; O2SAT 100
[2020-04-30 00:39] VITALS: PULSE 88
[2020-04-30 01:00] LABS: Glucose Point of Care 68 (65-105)
[2020-04-30 01:00] LABS: Glucose Point of Care 119 (65-105)
[2020-04-30 04:00] VITALS: BP 121/78; PULSE 68; PULSE 69; RESP 18; TEMP 36.7; O2SAT 100
--- NOTE | 2020-04-30 06:52 | WPDANESPN ---
Anes - Prog Note Post-Op Date/Time: 04/30/20 06:52 Cardiovascular status: normal (monitor hgb) Respiratory status: normal Airway patency: baseline Mental status: baseline Post-Op hydration status: normal (on dextrose IVF) Vital Signs: Last Vital Signs Temp 36.7 C 04/30/20 04:00 Pulse 68 04/30/20 04:00 Resp 18 04/30/20 04:00 BP 121/78 04/30/20 04:00 Pulse Ox 100 04/30/20 04:00 Pain Score (VAS): 0 I/O: Intake & Output 04/29/20 04/29/20 04/30/20 15:59 23:59 07:59 Intake Total 760 880 700 Output Total 3 6 Balance 760 878 694 Laboratory Tests 04/29/20 05:52 04/29/20 05:52 04/27/20 04/29/20 04/29/20 20:27 05:52 05:52 WBC 3.5 L RBC 3.32 L Hgb 9.7 L Hct 29.8 L MCV 89.8 MCH 29.2 MCHC 32.6 RDW 15.5 H Plt Count 206 MPV 8.8 Immature Gran % (Auto) 0.9 H Neut % (Auto) 56.3 Lymph % (Auto) 29.4 [place] % (Auto) 11.0 H Eos % (Auto) 1.2 Baso % (Auto) 1.2 Lymph # (Auto) 1.02 [place] # (Auto) 0.4 Eos # (Auto) 0.0 Baso # (Auto) 0.0 Abs Immat Gran (auto) 0.03 Absolute Neuts (auto) 2.0 Absolute Nucleated RBC 0.0 Nucleated RBC % 0.0 Sodium 132 L Potassium 4.2 Chloride 100 Carbon Dioxide 26 Anion Gap 6 L BUN 12 D Creatinine 1.00 Estim Creat Clear Calc 91 Estimated GFR > 60 Glucose 98 POC Capillary Glucose Calcium 8.1 L Phosphorus 3.7 Magnesium 2.1 Total Bilirubin 0.7 AST 58 ALT 25 Alkaline Phosphatase 68 Total Protein 6.0 L Albumin 3.0 L Enhanced Crossmatch See Detail 04/29/20 04/29/20 04/29/20 08:00 12:25 17:15 WBC RBC Hgb Hct MCV MCH MCHC RDW Plt Count MPV Immature Gran % (Auto) Neut % (Auto) Lymph % (Auto) [place] % (Auto) Eos % (Auto) Baso % (Auto) Lymph # (Auto) [place] # (Auto) Eos # (Auto) Baso # (Auto) Abs Immat Gran (auto) Absolute Neuts (auto) Absolute Nucleated RBC Nucleated RBC % Sodium Potassium Chloride Carbon Dioxide Anion Gap BUN Creatinine Estim Creat Clear Calc Estimated GFR Glucose POC Capillary Glucose 103 119 H 133 H Calcium Phosphorus Magnesium Total Bilirubin AST ALT Alkaline Phosphatase Total Protein Albumin Enhanced Crossmatch 04/29/20 04/29/20 04/30/20 21:57 23:40 00:23 WBC RBC Hgb Hct MCV MCH MCHC RDW Plt Count MPV Immature Gran % (Auto) Neut % (Auto) Lymph % (Auto) [place] % (Auto) Eos % (Auto) Baso % (Auto) Lymph # (Auto) [place] # (Auto) Eos # (Auto) Baso # (Auto) Abs Immat Gran (auto) Absolute Neuts (auto) Absolute Nucleated RBC Nucleated RBC % Sodium Potassium Chloride Carbon Dioxide Anion Gap BUN Creatinine Estim Creat Clear Calc Estimated GFR Glucose POC Capillary Glucose 69 68 119 H Calcium Phosphorus Magnesium Total Bilirubin AST ALT Alkaline Phosphatase Total Protein Albumin Enhanced Crossmatch Post-procedural complaints: none Patient Feedback: Patient satisfied with anesthetic care.
[2020-04-30 07:14] LABS: Anion Gap 7 mmol/L (8-16); Blood Urea Nitrogen 8 mg/dL (9-20); Calcium 8.4 mg/dL (8.4-10.2); Carbon Dioxide 26 mmol/L (22-30); Chloride 100 mmol/L (98-107); Estimated CRCL calculation 101 ml/min; Estimated Glomerular Filt Rate > 60; Glucose 92 mg/dL (75-110); Magnesium 2.2 mg/dL (1.6-2.3); Sodium 133 mmol/L (137-145)
[2020-04-30] MEDS: SUCRALFATE 1 GM TABLET PO (07:14)
[2020-04-30 07:15] LABS: Basophils Absolute Auto 0.1 K/mm3 (0.0-0.1); Basophils Percent Auto 1.9 % (0.2-1.2); Eosinophils Percent Auto 1.3 % (0-4.4); Hematocrit 30.4 % (42.0-52.0); Hemoglobin 9.8 g/dL (14.0-18.0); Immature Granulocyte Absolute 0.02 K/mm3 (0.00-0.031); Immature Granulocyte Percent A 0.6 % (0-0.5); Lymphocytes Absolute Auto 1.17 K/mm3 (0.9-3.2); Lymphocytes Percent Auto 37.5 % (18.3-44.2); Mean Corpuscular HGB Conc 32.2 g/dl (32-36); Mean Corpuscular Hemoglobin 28.8 pg (26-34); Mean Corpuscular Volume 89.4 fl (80-100); Mean Platelet Volume 8.9 fl (7.4-10.4); Monocytes Absolute Auto 0.3 K/mm3 (0.1-0.6); Monocytes Percent Auto 10.6 % (2.6-8.5); Neutrophils Absolute Auto 1.5 K/mm3 (1.3-6.7); Neutrophils Percent Auto 48.1 % (45.5-73.1); Platelet Count Result 237 k/mm3 (150-375); Red Cell Distribution Width 15.4 % (11.5-14.5); White Blood Count 3.1 K/mm3 (4.5-10.0)
[2020-04-30 08:00] VITALS: BP 129/90; PULSE 73; PULSE 77; RESP 18; TEMP 36.6; O2SAT 99
[2020-04-30] MEDS: GLIMEPIRIDE 2 MG TABLET 4 MG PO (08:43)
[2020-04-30] MEDS: PANTOPRAZOLE 40 MG TABLET PO (08:43)
[2020-04-30 09:43] LABS: Glucose Point of Care 123 (65-105)
[2020-04-30 10:10] VITALS: PULSE 148
[2020-04-30] MEDS: METOPROLOL TARTRATE 12.5 MG TABLET PO (10:10)
--- NOTE | 2020-04-30 10:53 | WPDGIPROGNO ---
Progress Note: A&P Additional Plan GI [facility] 30 Apr 2020 No abdominal pain, nausea, vomiting, BRBPR, melena. Jorydn clears VSS soft/NT Hct 30 LABORATORY DATA: Hematocrit 30. LFTs were normal 04-29-2020. ASSESSMENT/PLAN: Iron and B12 deficiency with melena, heme-positive stool, epigastric pain: - EGD 04-29-2020 with 3 cm anastomotic ulcer at the Deidre limb - Ulcer was actively oozing; treated with 7-Swedish gold probe with complete thermal ablation and cauterization - Iron 55, TIBC 299, iron saturation 18%. Ferritin 15, B12 177, and folate 11 - Care with aspirin, NSAIDS and anticoagulants - Protonix 40 mg po BID - Carafate 1 g achs x 1 month - Replete iron and B12 parenterally-> po iron as OP - Repeat EGD in 8 weeks to document healing - If ulcer persists may need surgical revision Case reviewed with CADEN Go. If pt jordyn po OK with me for discharge. Patient to follow-up with his physician in [place]. Marcelo Adrian MD [phone] Subjective Date/time seen: 04/30/20 10:53 Objective Data Vital Signs Vital Signs: Vital Signs - 24 hr 04/29/20 10:58 04/29/20 11:30 04/29/20 12:00 Temperature Pulse Rate 73 80 Respiratory Rate 20 Blood Pressure 109/73 122/90 Pulse Oximetry 100 04/29/20 14:00 04/29/20 16:00 04/29/20 20:00 Temperature 36.3 C L 36.5 C Pulse Rate 95 80 78 Respiratory Rate 20 18 Blood Pressure 125/91 H 122/72 Pulse Oximetry 100 100 04/29/20 20:50 04/29/20 21:42 04/30/20 00:00 Temperature 36.7 C Pulse Rate 84 78 69 Respiratory Rate 18 Blood Pressure 121/81 Pulse Oximetry 100 04/30/20 00:39 04/30/20 04:00 04/30/20 08:00 Temperature 36.7 C 36.6 C Pulse Rate 88 68 77 Respiratory Rate 18 18 Blood Pressure 121/78 129/90 Pulse Oximetry 100 99 04/30/20 10:10 Temperature Pulse Rate 148 H Respiratory Rate Blood Pressure Pulse Oximetry Intake/Output Intake/Output: Intake & Output 1204/28/20 04/29/20 04/30/20 23:59 23:59 23:59 23:59 Intake Total 1000 3420 2640 940 Output Total 1925 203 6 Balance 1000 1495 2437 934 Meds/Results Medications: Active Medications Generic Name Dose Route Start Last Admin Trade Name Freq PRN Reason Stop Dose Admin Dextrose 12.5 gm 04/28/20 13:15 Dextrose 50% 25 Gm/50 Ml Syringe IV PUSH PRN PRN Hypoglycemia Protocol Ferrous Sulfate 324 mg 04/29/20 08:00 04/29/20 11:16 Ferrous Sulfate 324 Mg Tablet PO 324 mg DAILY@0800 JUAN Administration Glimepiride 4 mg 04/28/20 17:00 04/30/20 08:43 Glimepiride 2 Mg Tablet PO 4 mg BIDWM JUAN Administration Glucagon 1 mg 04/28/20 13:15 Glucagon For Inj 1 Mg Vial IM PRN PRN Hypoglycemia Protocol Glucose 15 gm 04/28/20 13:15 Glucose Oral Gel 15 Gm Of Glucse In 37.5 Gm Tube PO PRN PRN Hypoglycemia Protocol Dextrose 1,000 mls @ 100 mls/hr 04/28/20 13:15 Dextrose 5% 1,000 Ml IVPB PRN PRN Hypoglycemia Protocol Metoprolol Tartrate 12.5 mg 04/30/20 09:00 04/30/20 10:10 Metoprolol Tartrate 12.5 Mg Tablet PO 12.5 mg Q12HR JUAN Administration Ondansetron HCl 4 mg 04/27/20 21:32 Ondansetron Inj 4 Mg/2 Ml Vial IV PUSH Q4H PRN Nausea Pantoprazole Sodium 40 mg 04/29/20 21:00 04/30/20 08:43 Pantoprazole 40 Mg Tablet PO 40 mg Q12HR JUAN Administration Simethicone 0.3 ml 04/29/20 10:20 04/29/20 10:21 Simethicone Oral Suspension 20 Mg/0.3 Ml 30 Ml Bottle PO 0.6 ml ONCE PRN Administration Gas Discomfort Sucralfate 1 gm 04/29/20 11:30 04/30/20 07:14 Sucralfate 1 Gm Tablet PO 1 gm ACHS JUAN Administration Labs Labs: Laboratory Results - last 24 hr 04/27/20 04/29/20 04/29/20 20:27 12:25 17:15 WBC RBC Hgb Hct MCV MCH MCHC RDW Plt Count MPV Immature Gran % (Auto) Neut % (Auto) Lymph % (Auto) [place] % (Auto) Eos % (Auto) Baso % (Auto) Lymph
[2020-04-30] MEDS: FERROUS SULFATE 324 MG TABLET PO (11:07)
--- NOTE | 2020-04-30 12:24 | PM.DS ---
DS: Admitting Diagnosis Admitting Diagnosis Admitting Diagnosis: GI bleeding DS: Discharge Diagnosis Discharge Diagnosis (1) Acute GI bleeding: Code(s): K92.2 - Gastrointestinal hemorrhage, unspecified Status: Acute Assessment and Plan: Date of Admission 04/27/20 Date of Discharge/DOS 04/30/20 Mr. Ramirez is a 60yo M with history of Deidre-en-Y gastric bypass and history of previous GI bleed from NSAID use who presented to the ED for evaluation of black tarry stool that began 04/27/20. Hemoglobin remained low but stable. Iron and B12 levels were low and replaced parenterally. He was evaluated by GI, Dr Adrian, and underwent EGD 04/29/20. EGD demonstrated 3cm anastomotic ulcer at the Deidre limb with active oozing that was cauterized. He was treated with protonix BID as well as carafate with meals and at bedtime. He was noted to be in atrial fibrillation, which is a new diagnosis for him. He did have some intermittently elevated heart rates with walking to restroom with which he was asymptomatic. He was started on metoprolol tartrate which improved his rates but he remained in atrial fibrillation. It is unclear how long he has been in this rhythm since EKG on arrival to the ED demonstrates A fib and he is asymptomatic. Systemic anticoagulation is contraindicated given his active GI bleeding and with a [id number] score of 1 he may not need full anticoagulation at this time. He is living in [place], in town to visit family. He was strongly encouraged to establish care with PCP, gastroenterology, and cardiology upon his arrival home to [place]. He is feeling well and is hemodynamically stable for discharge 04/30/20. Seen by GI s/p EGD 04/29. Oozing 3cm ulcer at Deidre limb anastomosis required cautery. Hgb low but stable. Avoid NSAIDs; Use tylenol as needed for pain; antiemetics as needed. (2) Atrial fibrillation: Qualifiers: Atrial fibrillation type: unspecified Qualified Code(s): I48.91 - Unspecified atrial fibrillation Code(s): I48.91 - Unspecified atrial fibrillation Status: Acute Assessment and Plan: New a fib with intermittent rapid rates, improved. Suspect precipitated by acute illness although it is unclear how long this rhythm has been present since he is asymptomatic and it was present on arrival. Rates have improved with Lopressor. Not a candidate for systemic anticoagulation due to acute GI bleeding. [id number] score of 1, he may not require anticoagulation at this time anyway. Echocardiogram shows abnormal diastolic function with normal LV systolic function EF 40-45% with mild mitral and tricuspid regurg. Will recommend he establish with a animal rides manager once he gets back home to [place]. (3) Anemia: Qualifiers: Anemia type: unspecified type Qualified Code(s): D64.9 - Anemia, unspecified Code(s): D64.9 - Anemia, unspecified Status: Acute Assessment and Plan: Normocytic, suspect secondary to acute blood loss anemia from upper GI bleeding superimposed on iron deficiency. Supplement iron and B12. IV venofer today. Monitor CBC, transfuse as needed. (4) Essential hypertension: Code(s): I10 - Essential (primary) hypertension Status: Chronic Assessment and Plan: BP stable on lower end other than one low BP in GI lab, patient feels well. Hold home lisinopril, started new lopressor. (5) Type 2 diabetes mellitus: Code(s): E11.9 - Type 2 diabetes mellitus without complications Status: Chronic Assessment and Plan: Hgb A1c 5.8%; resume his home Amaryl. Stable. DS: Summary Hospital Course Hospital Course: See above. Time Spent with Patient Time attestation: Total time spent
== END 2020-04-30 11:25 | disposition home or self-care (01) ==
LOC: ANHED 21:38 → ANH3MEDSUR 22:44
PROVIDERS: Internal Medicine Gastroenterology; Physician Assistant; Admitting Provider Student in an Organized Health Care Education/Training Program; Emergency Provider Emergency Medicine; Visit Provider Family Medicine
PROC: 0DJ08ZZ Inspection of Upper Intestinal Tract, Via Natural or Artificial Opening Endoscopic (ICD-10-PCS; CPT 43235; principal; 2020-04-29 09:00)
DX: K92.2 Gastrointestinal hemorrhage, unspecified (principal); I48.91 Unspecified atrial fibrillation; D64.9 Anemia, unspecified; E11.9 Type 2 diabetes mellitus without complications; I10 Essential (primary) hypertension; M19.90 Unspecified osteoarthritis, unspecified site; Z98.84 Bariatric surgery status
CPT/HCPCS: 43255; 36415; 80048; 80053; 82607; 82728; 82746; 83036; 83540; 83550; 83735; 84100; 84466; 84484; 85014; 85018; 85025; 85046; 85610; 85730; 86850; 86860; 86870; 86880; 86900; 86901; 86902; 86905; 86922; 86972; 86999; 93005; 93306; 96361; 96372; 96374; 96375; 96376; 99285; A9270; C9113; G0378; J1756; J2704; J3420; J7030; J7120

== ENCOUNTER 2021-02-17 18:35 | Inpatient (IN) | payer BC, SELFPAY ==
[2021-02-17] VITALS (8 sets, daily range): BP systolic 109–126; BP diastolic 73–85; PULSE 115–139; RESP 16–22; TEMP 36.5–37; O2SAT 97–100; BMI 34.4
--- NOTE | 2021-02-17 18:58 | ED.GIBLEED ---
HPI - GI Bleed General Chief complaint: GI Bleed Stated complaint: Blood in Stool Time Seen by Provider: 02/17/21 18:44 History of Present Illness HPI Narrative: Patient is a 60-year-old male who presents ER with concerns of GI bleed. Patient has history of alcoholic cirrhosis. He was cared for in [place] regarding this. Recently moved to the area from [place] because he was told he should not live by himself. He is a poor historian outside this and cannot report any medications that he takes. Outpatient review shows he is on Plavix which was filled on 02/02/2021. He reports he does have history of previous GI bleed. Reports at 230 today he started passing grossly bloody stools that were dark. He is also had an episode of coffee-ground emesis. No syncope. Denies history of esophageal varices. Related Data Home Medications Medication Instructions Recorded Confirmed glimepiride 4 mg PO BID 04/27/20 04/27/20 clopidogrel [Plavix] 02/17/21 dapagliflozin [Farxiga] 5 mg PO DAILY 02/17/21 ergocalciferol (vitamin D2) 02/17/21 folic acid 02/17/21 furosemide 02/17/21 lactulose 02/17/21 levothyroxine 02/17/21 metformin mg PO 02/17/21 sertraline mg 02/17/21 sertraline mg 02/17/21 spironolactone 02/17/21 Allergies Allergy/AdvReac Type Severity Reaction Status Date / Time tetanus toxoid, adsorbed Allergy Hives Verified 02/17/21 19:35 Review of Systems Review of Systems: All systems reviewed & are unremarkable except as noted in HPI and below Constitutional: Constitutional: Denies chills, Denies fever(s) and Reports weakness ENT: Denies nasal congestion and Denies sore throat Respiratory: Respiratory: Denies cough, Denies dyspnea and Denies wheezing Gastrointestinal: Gastrointestinal: Denies abdominal pain, Denies diarrhea, Reports nausea and Reports vomiting Comments: Rectal bleeding Neurologic: Reports dizziness, Denies syncope, Denies headache(s), Denies focal weakness and Denies numbness PMFSH Past Medical History Medical History (Updated 02/17/21 @ 20:54 by Thor Jade MD) Acute GI bleeding Atrial fibrillation Essential hypertension Obesity Right ankle injury Type 2 diabetes mellitus Upper gastrointestinal bleed Surgical History Surgical History (Updated 04/28/20 @ 01:48 by Lilia Cespedes DO) History of back surgery History of Deidre-en-Y gastric bypass Family History Family History Mother Ovarian cancer Throat cancer Diabetes mellitus Congestive heart failure Chronic obstructive pulmonary disease Social History Social History (Updated 04/28/20 @ 01:49 by Lilia Cespedes DO) Social History: Patient is active, independent. 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 HEAD: Normocephalic, atraumatic. EYES: PERRL and EOMI. ENT: Mucous membranes moist. CHEST: Clear to auscultation. No respiratory distress. HEART: Irregular regular rate and rhythm is tachycardic. Normal peripheral pulses. ABDOMEN: Soft, nontender, nondistended, maroon/gross blood on YESSICA. EXTREMITIES: Normal range of motion. No edema. SKIN: Warm, dry, pale, no rash. NEURO: Alert and oriented x3. PSYCH: Normal mood and affect. Course Course Emergency Course: Patient informed of results. Admit to hospitalist. GI consulted. Patient started on Protonix drip. Patient with previous history of ulceration at gastric anastomosis. Vital Signs Vital signs: Vital Signs Temperature 97.7 F 02/17/21 18:46 Pulse Rate
[2021-02-17] MEDS: SODIUM CHLORIDE 0.9% IV 1,000 ML 999 ML IV CONT ×3 (19:00→21:11)
--- NOTE | 2021-02-17 19:10 | PC.NURSE ---
Assumed care of pt at this time, report taken from Raphael MATHIAS. Pt alert and upright on stretcher, family at bedside. Fluids infusing per order. Updated on POC.
[2021-02-17 19:11] LABS: Basophils Absolute Auto 0.1 K/mm3 (0.0-0.1); Basophils Percent Auto 1.6 % (0.2-1.2); Eosinophils Absolute Auto 0.3 K/mm3 (0-0.3); Eosinophils Percent Auto 3.2 % (0-4.4); Hemoglobin 11.2 g/dL (14.0-18.0); Immature Granulocyte Absolute 0.03 K/mm3 (0.00-0.031); Immature Granulocyte Percent A 0.4 % (0-0.5); Lymphocytes Absolute Auto 3.02 K/mm3 (0.9-3.2); Lymphocytes Percent Auto 39.2 % (18.3-44.2); Mean Corpuscular HGB Conc 33.9 g/dl (32-36); Mean Corpuscular Hemoglobin 32.3 pg (26-34); Mean Corpuscular Volume 95.1 fl (80-100); Mean Platelet Volume 8.9 fl (7.4-10.4); Monocytes Absolute Auto 0.5 K/mm3 (0.1-0.6); Monocytes Percent Auto 6.5 % (2.6-8.5); Neutrophils Absolute Auto 3.8 K/mm3 (1.3-6.7); Neutrophils Percent Auto 49.1 % (45.5-73.1); Platelet Count Result 243 k/mm3 (150-375); Red Blood Count 3.47 M/mm3 (4.6-6.20); White Blood Count 7.7 K/mm3 (4.5-10.0)
[2021-02-17 19:20] LABS: Alanine Aminotransferase 21 U/L (4-50); Albumin Level 3.2 g/dL (3.5-5.1); Alkaline Phosphatase 62 U/L (38-126); Anion Gap 10 mmol/L (8-16); Aspartate Amino Transferase 57 U/L (17-59); Bilirubin,Total 3.6 mg/dL (0.2-1.3); Blood Urea Nitrogen 26 mg/dL (9-20); Calcium 8.6 mg/dL (8.4-10.2); Carbon Dioxide 27 mmol/L (22-30); Chloride 96 mmol/L (98-107); Estimated CRCL calculation 150 ml/min; Estimated Glomerular Filt Rate > 60; Glucose 202 mg/dL (65-110); Potassium 3.6 mmol/L (3.4-5.0); Sodium 133 mmol/L (137-145)
[2021-02-17 19:21] LABS: INR 1.4; Partial Thromboplastin Time 32.5 SECONDS (22.3-36.8); Prothrombin Time 16.5 Seconds (11.1-14.7)
[2021-02-17] MEDS: PANTOPRAZOLE SODIUM IV 40 MG VIAL 80 MG IV PUSH (19:30)
--- NOTE | 2021-02-17 21:02 | PC.NURSE ---
EDP Yasmany notified of pts sustained abnormal HR and rhythm. New orders on chart.
--- NOTE | 2021-02-17 22:00 | ADMIMU ---
This patient, Richard Ramirez, was admitted to IMU status, and placed in Intensive Care Unit-10. Patient/family oriented to hospital policies and general routines including ID bracelet, bed and alarms, visiting hours, pain management, procedures, bathroom and other care routines, personal items, smoking policy, room service/diet, and visiting hours. Valuables list has been completed. Information on how to activate the Rapid Response Team has been discussed. Patient/Family are encouraged to report perceived risks to care and to ask questions if they do not understand what they are told or what they should do.
--- NOTE | 2021-02-17 23:01 | PM.IMHP ---
H&P: HPI History of Present Illness Date/Time: 02/17/21 23:01 Chief Complaint: Melena Narrative: Patient is a 60-year-old male who presents ER with melena since past week. He he has a history of Deidre-en-Y bypass 2006, history of GI bleed, atrial fibrillation not on anticoagulation due to GI bleed, hypertension, type 2 diabetes mellitus, osteoarthritis. He was recently placed back on Plavix by his house moving supervisor due to underlying atrial fibrillation about a month ago. He denies any abdominal pain and denies any ongoing use of NSAIDs. He felt little lightheaded but has not passed out or fell like 1. He has also history of alcohol use last use was 6 months ago as he states. Denies any history of esophageal varices. Review of Systems Review of Systems: - CONSTITUTIONAL: Denies weight loss, fever and chills. - HEENT: Denies changes in vision and hearing - RESPIRATORY: Denies SOB and cough. - CV: Denies palpitations and CP. - GI: Reports abdominal pain, denies nausea, vomiting and diarrhea. - : Denies dysuria and urinary frequency. - MSK: Denies myalgia and joint pain. - SKIN: Denies rash and pruritus. - NEUROLOGICAL: Denies headache and syncope. - PSYCHIATRIC: Denies recent changes in mood. Denies anxiety and depression. All systems reviewed & are unremarkable except as noted in HPI and below Constitutional: Constitutional: Reports fatigue and Reports weakness Neurologic: Reports weakness Endocrine: Endocrine: Reports fatigue PMFSH Past Medical History Medical History (Updated 02/17/21 @ 23:14 by Loyd Nguyễn MD) Acute GI bleeding Atrial fibrillation Essential hypertension Obesity Right ankle injury Type 2 diabetes mellitus Upper gastrointestinal bleed Surgical History Surgical History (Updated 04/28/20 @ 01:48 by Lilia Cespedes DO) History of back surgery History of Deidre-en-Y gastric bypass Family History Family History Mother Ovarian cancer Throat cancer Diabetes mellitus Congestive heart failure Chronic obstructive pulmonary disease Social History Social History (Updated 04/28/20 @ 01:49 by Lilia Cespedes DO) Social History: Patient is active, independent. 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 Gender identity (if verbalized by the patient): Male Spiritual care concerns: No Meds Home Medications and Allergies Home Medications Medication Instructions Recorded Confirmed Type glimepiride 4 mg PO BID 04/27/20 04/27/20 History ferrous sulfate 325 mg PO DAILY@0800 30 Days #30 04/30/20 Rx tablet metoprolol tartrate 12.5 mg PO Q12H 30 Days #30 tablet 04/30/20 Rx pantoprazole 40 mg PO Q12HR 30 Days #60 tablet 04/30/20 Rx sucralfate 1 g PO ACHS 30 Days #120 tablet 04/30/20 Rx clopidogrel [Plavix] 02/17/21 History dapagliflozin [Farxiga] 5 mg PO DAILY 02/17/21 History ergocalciferol (vitamin D2) 02/17/21 History folic acid 02/17/21 History furosemide 02/17/21 History lactulose 02/17/21 History levothyroxine 02/17/21 History metformin mg PO 02/17/21 History sertraline mg 02/17/21 History sertraline mg 02/17/21 History spironolactone 02/17/21 History Allergies Allergy/AdvReac Type Severity Reaction Status Date / Time tetanus toxoid, adsorbed Allergy Hives Verified 02/17/21 19:35 Vital Signs Vital Signs - 24 hr 02/17/21 18:46 02/17/21 19:32 02/17/21 20:14 Temperature 97.7 F Pulse Rate 139 H 116 H 126 H Respiratory Rate 20 16 18 Blood Pressure 109/84 118/73 113/75 Pulse Oximetry 100 99 100 02/17/21 21:01 02/17/21 21:57 02/17/21 22:41 Temperature Pulse Rate 132 H 116 H 115 H Respiratory Rate
[2021-02-18] VITALS (16 sets, daily range): BP systolic 101–124; BP diastolic 61–93; PULSE 105–148; RESP 16–22; TEMP 36.7–37; O2SAT 98–100
[2021-02-18 00:50] LABS: Hematocrit 27.6 % (42.0-52.0); Hemoglobin 9.3 g/dL (14.0-18.0)
[2021-02-18 04:50] LABS: Hematocrit 26.4 % (42.0-52.0)
[2021-02-18] MEDS: SODIUM CHLORIDE 0.9% IV 1,000 ML 125 ML IV CONT ×3 (05:26→23:07)
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
[2021-02-18 13:29] LABS: Glucose Point of Care 125 mg/dl (65-105)
[2021-02-18] MEDS: LACTATED RINGERS 1,000 ML 150 ML IV CONT (13:30)
--- NOTE | 2021-02-18 14:22 | WPDANESEPPF ---
Anes - Initial Pre Proc Eval Procedure: Operation Date: 02/18/21 14:00 Proposed Procedures p Esophagogastroduodenoscopy - Will Garcia MD Date/Time: 02/18/21 14:22 Surgeon: Loyd Nguyễn MD Pre Op Diagnosis: Upper GI Bleed, Afib RVR Patient Data Age: 60 Gender: M Height: 1.8 m Weight: 112 kg Last Vital Signs Temp 98.6 F 02/18/21 08:00 Pulse 133 H 02/18/21 12:00 Resp 20 02/18/21 11:39 BP 101/65 02/18/21 08:00 Pulse Ox 98 02/18/21 11:39 Allergies Allergy/AdvReac Type Severity Reaction Status Date / Time tetanus toxoid, adsorbed Allergy Hives Verified 02/18/21 13:26 Home Medications Medication Instructions Recorded Confirmed Type ferrous sulfate 325 mg PO DAILY@0800 30 Days #30 04/30/20 02/18/21 Rx tablet metoprolol tartrate 12.5 mg PO Q12H 30 Days #30 tablet 04/30/20 02/18/21 Rx pantoprazole 40 mg PO Q12HR 30 Days #60 tablet 04/30/20 02/18/21 Rx clopidogrel [Plavix] 02/17/21 History dapagliflozin [Farxiga] 5 mg PO DAILY 02/17/21 02/18/21 History ergocalciferol (vitamin D2) 1,250 mcg PO WEEKLY 02/17/21 02/18/21 History folic acid 1 mg PO DAILY 02/17/21 02/18/21 History furosemide 20 mg PO DAILY 02/17/21 02/18/21 History lactulose 10 ml PO DAILY 02/17/21 02/18/21 History levothyroxine 50 mcg PO DAILY 02/17/21 02/18/21 History metformin 500 mg PO DAILY 02/17/21 02/18/21 History sertraline 50 mg PO DAILY 02/17/21 02/18/21 History spironolactone 25 mg PO DAILY 02/17/21 02/18/21 History Laboratory Tests 02/17/21 02/17/21 02/17/21 19:05 19:05 19:05 WBC 7.7 K/mm3 K/mm3 (4.5-10.0) RBC 3.47 M/mm3 L M/mm3 (4.6-6.20) Hgb 11.2 g/dL L g/dL (14.0-18.0) Hct 33.0 % L % (42.0-52.0) MCV 95.1 fl fl (80-100) MCH 32.3 pg pg (26-34) MCHC 33.9 g/dl g/dl (32-36) RDW 17.0 % H % (11.5-14.5) Plt Count 243 k/mm3 k/mm3 (150-375) MPV 8.9 fl fl (7.4-10.4) Immature Gran % (Auto) 0.4 % % (0-0.5) Neut % (Auto) 49.1 % % (45.5-73.1) Lymph % (Auto) 39.2 % % (18.3-44.2) [place] % (Auto) 6.5 % % (2.6-8.5) Eos % (Auto) 3.2 % % (0-4.4) Baso % (Auto) 1.6 % H % (0.2-1.2) Lymph # (Auto) 3.02 K/mm3 K/mm3 (0.9-3.2) [place] # (Auto) 0.5 K/mm3 K/mm3 (0.1-0.6) Eos # (Auto) 0.3 K/mm3 K/mm3 (0-0.3) Baso # (Auto) 0.1 K/mm3 K/mm3 (0.0-0.1) Abs Immat Gran (auto) 0.03 K/mm3 K/mm3 (0.00-0.031) Absolute Neuts (auto) 3.8 K/mm3 K/mm3 (1.3-6.7) Absolute Nucleated RBC 0.0 K/mm3 K/mm3 (0.0-0.012) Nucleated RBC % 0.0 % % (0.0-0.2) PT 16.5 Seconds H Seconds (11.1-14.7) INR 1.4 APTT 32.5 SECONDS SECONDS (22.3-36.8) Sodium 133 mmol/L L mmol/L (137-145) Potassium 3.6 mmol/L mmol/L (3.4-5.0) Chloride 96 mmol/L L mmol/L (98-107) Carbon Dioxide 27 mmol/L mmol/L (22-30) Anion Gap 10 mmol/L mmol/L (8-16) BUN 26 mg/dL H D mg/dL (9-20) Creatinine 1.00 mg/dL mg/dL (0.7-1.3) Estim Creat Clear Calc 150 ml/min ml/min Estimated GFR > 60 (59 - ) Glucose 202 mg/dL H mg/dL (65-110) POC Capillary Glucose Calcium 8.6 mg/dL mg/dL (8.4-10.2) Total Bilirubin 3.6 mg/dL H mg/dL (0.2-1.3) AST 57 U/L U/L (17-59) ALT 21 U/L U/L (4-50) Alkaline Phosphatase 62 U/L U/L (38-126) Total Protein 8.0 g/dL g/dL (6.3-8.2) Albumin 3.2 g/dL L g/dL (3.5-5.1) Blood Type Antibody Screen Antibody Identification Antigen Identification ALFONZO, IgG Interpret ALFONZO, Poly Interpret ALFONZO, Complement Interp 02/17/21 02/18/21 02/18/21 19:05 00:29 04:25 WBC RBC
--- NOTE | 2021-02-18 14:44 | SUR.OPER ---
2 ml of epinephrine used with the Gold probe for injection during EGD.
--- NOTE | 2021-02-18 17:46 | PM.IMPN ---
Progress Note: A&P Assessment and Plan (1) Acute GI bleeding: Code(s): K92.2 - Gastrointestinal hemorrhage, unspecified Status: Acute Assessment and Plan: Acute GI bleeding in the setting of recurrent GI bleed secondary to ulcers secondary to NSAIDs use. Given history of chronic liver disease, secondary to chronic ETOH use, acute GI bleed from esophageal varices was of a consideration. On admission the patient was started on Protonix; we held off from octreotide while awaiting EGD. EGD report intestinal ulcers and gastritis. A few ulcers ranging in size from 6 mm to 30 mm were visualized in the proximal jejunum. The ulcers had an adherent clot. An injection of epinephrine was administered to control bleeding successfully. The lesion was cauterized. Moderate issues are causing gastritis was seen in the body of the stomach in the antrum. The gastritis and had a moderate edematous change. Differential diagnosis includes gastric ulcer/PUD/gastritis. No reported history of ongoing NSAIDs use. Patient was unknowingly recently placed on Plavix which could be a culprit. Hold Plavix. Continue serial H&H every 6 hours. Currently hemoglobin is stable at 9. There is no indication for blood transfusion. We will continue close monitoring. # (2) Type 2 diabetes mellitus: Code(s): E11.9 - Type 2 diabetes mellitus without complications Status: Chronic Assessment and Plan: Hold metformin. Start Lantus coverage. Insulin sliding scale. (3) Essential hypertension: Code(s): I10 - Essential (primary) hypertension Status: Chronic Assessment and Plan: Chronic hypertension, presenting with acute GI bleeding and hypotension; hold antihypertensive (4) Atrial fibrillation: Qualifiers: Atrial fibrillation type: unspecified Qualified Code(s): I48.91 - Unspecified atrial fibrillation Code(s): I48.91 - Unspecified atrial fibrillation Status: Acute Assessment and Plan: Atrial fibrillation with rapid ventricular rate likely related to underlying GI bleed rate better after fluid resuscitation in the ER Currently hypotensive. Hold beta blockers. Start amiodarone. (5) Melena: Code(s): K92.1 - Melena Status: Acute Assessment and Plan: Continue close CBC monitoring. (6) History of Deidre-en-Y gastric bypass: Code(s): Z98.84 - Bariatric surgery status Status: Inactive Assessment and Plan: History of Deidre-en-Y bypass in 2006 (7) Obesity: Code(s): E66.9 - Obesity, unspecified Status: Acute Assessment and Plan: Caloric restriction Additional Plan # DVT prophylaxis SCDs # full code status Subjective Date/time seen: 02/18/21 08:46 S: Patient was examined at the bedside. NO complaints. He underwent EGD today. Review of Systems Review of Systems: All systems reviewed & are unremarkable except as noted in HPI and below Constitutional: Constitutional: Reports fatigue and Reports weakness Neurologic: Reports weakness Endocrine: Endocrine: Reports fatigue Exam Narrative: GENERAL: Ill-appearing, well-nourished, and in no acute distress. HEAD: Normocephalic, atraumatic. EYES: PERRL and EOMI. ENT: Mucous membranes moist. CHEST: Clear to auscultation. No respiratory distress. HEART: Irregular regular rate and rhythm is tachycardic. Normal peripheral pulses. ABDOMEN: Soft, mild tender epigastric, nondistended, melanomatous stool EXTREMITIES: Normal range of motion. No edema. SKIN: Warm, dry, pale, no rash. NEURO: Alert and oriented x3. PSYCH: Normal mood and affect. Objective Data Vital Signs Vital Signs: Vital Signs - 24 hr 02/17/21 18:46 02/17/21 19:32 02/17/21 20:14 Temperature 97.7 F Pulse Rate 139 H 116 H 126 H Respiratory Rate 20 16 18 Blood Pressure 109/84 118/73 113/75 Pulse Oximetry 100 99 100 02/17/21 21:01 02/17/21 21:57 02/17/21 22:41 Temperature Pulse Rate 132 H
[2021-02-18] MEDS: SUCRALFATE 1 GM TABLET PO ×2 (17:50→20:02)
[2021-02-18] MEDS: AMIODARONE HCL 200 MG TABLET PO (18:40)
[2021-02-18 18:47] LABS: Hematocrit 27.1 % (42.0-52.0)
[2021-02-18 21:35] LABS: Glucose Point of Care 198 mg/dl (65-105)
[2021-02-18] MEDS: ACETAMINOPHEN 500 MG TABLET 1000 MG PO (22:03)
[2021-02-18 22:11] LABS: Glucose Point of Care 184 mg/dl (65-105)
[2021-02-18] MEDS: INSULIN GLARGINE (*BKC) 100 UNITS/ML 10 UNITS SUB-Q (23:07)
[2021-02-19] VITALS (13 sets, daily range): BP systolic 100–119; BP diastolic 61–88; PULSE 104–136; RESP 18–23; TEMP 36.5–36.9; O2SAT 100
[2021-02-19 03:09] LABS: Glucose Point of Care 99 mg/dl (65-105)
[2021-02-19] MEDS: SODIUM CHLORIDE 0.9% IV 1,000 ML 125 ML IV CONT ×3 (06:35→23:06)
[2021-02-19] MEDS: SUCRALFATE 1 GM TABLET PO ×4 (06:35→21:42)
[2021-02-19] MEDS: LEVOTHYROXINE SODIUM 50 MCG TABLET PO (06:35)
--- NOTE | 2021-02-19 07:44 | PM.IMPN ---
Progress Note: A&P Assessment and Plan (1) Acute GI bleeding: Code(s): K92.2 - Gastrointestinal hemorrhage, unspecified Status: Acute Assessment and Plan: Acute GI bleeding in the setting of recurrent GI bleed secondary to ulcers secondary to NSAIDs use. EGD on 02/20 revealed large ulcer at gastrojejunal anastomosis treated with epi and gold probe by Dr Garcia, also gastritis. EGD reports intestinal ulcers and gastritis. A few ulcers ranging in size from 6 mm to 30 mm were visualized in the proximal jejunum. The ulcers had an adherent clot. An injection of epinephrine was administered to control bleeding successfully. The lesion was cauterized. Moderate issues are causing gastritis was seen in the body of the stomach in the antrum. The gastritis had a moderate edematous change. Differential diagnosis includes gastric ulcer/PUD/gastritis. No reported history of ongoing NSAIDs use. Patient was unknowingly recently placed on Plavix which could be a culprit. Hold Plavix. Continue daily CBC. Currently hemoglobin is stable at 8.9. There is no indication for blood transfusion. We will continue close monitoring. Continue PPI. Advance diet as tolerated. # (2) Type 2 diabetes mellitus: Code(s): E11.9 - Type 2 diabetes mellitus without complications Status: Chronic Assessment and Plan: Hold metformin. Start Lantus coverage. Insulin sliding scale. Fasting blood sugar is 105. Accu-Cheks in the 112-186 range. (3) Essential hypertension: Code(s): I10 - Essential (primary) hypertension Status: Chronic Assessment and Plan: Chronic hypertension, presenting with acute GI bleeding and hypotension; hold antihypertensive. Current BP in the 100/76-119/88 range. Continue to hold home blood pressure medications. (4) Atrial fibrillation: Qualifiers: Atrial fibrillation type: unspecified Qualified Code(s): I48.91 - Unspecified atrial fibrillation Code(s): I48.91 - Unspecified atrial fibrillation Status: Acute Assessment and Plan: Atrial fibrillation with rapid ventricular rate likely related to underlying GI bleed rate better after fluid resuscitation in the ER. Improving heart rates while on amiodarone. He Currently remains hypotensive. Hold beta blockers. Continue amiodarone. (5) Melena: Code(s): K92.1 - Melena Status: Acute Assessment and Plan: Continue close CBC monitoring. (6) History of Deidre-en-Y gastric bypass: Code(s): Z98.84 - Bariatric surgery status Status: Inactive Assessment and Plan: History of Deidre-en-Y bypass in 2007 (7) Obesity: Code(s): E66.9 - Obesity, unspecified Status: Acute Assessment and Plan: Caloric restriction Additional Plan # DVT prophylaxis SCDs # full code status Subjective Date/time seen: 02/19/21 07:44 S: Patient is examined at the bedside. He tolerated the EGD well yesterday. There is no active complaint. He tolerated his diet this morning. Interval history: EGD on 02/20 revealed large ulcer at gastrojejunal anastomosis treated with epi and gold probe by Dr Garcia, also gastritis. He is comfortable in ICU, stable but tachycardic. Last BM still dark stool Review of Systems Review of Systems: All systems reviewed & are unremarkable except as noted in HPI and below Constitutional: Constitutional: Reports fatigue and Reports weakness Neurologic: Reports weakness Endocrine: Endocrine: Reports fatigue Exam Narrative: GENERAL: Ill-appearing, well-nourished, and in no acute distress. HEAD: Normocephalic, atraumatic. EYES: PERRL and EOMI. ENT: Mucous membranes moist. CHEST: Clear to auscultation. No respiratory distress. HEART: Irregularly irregular rate and rhythm; tachycardic. Normal peripheral pulses. ABDOMEN: Soft, mild tender epigastric, nondistended, melanomatous stool EXTREMITIES: Normal range of motion. No edema. SKIN: Warm, dry, pale
[2021-02-19 07:45] LABS: Glucose Point of Care 112 mg/dl (65-105)
[2021-02-19 08:25] LABS: Basophils Absolute Auto 0.1 K/mm3 (0.0-0.1); Basophils Percent Auto 1.7 % (0.2-1.2); Eosinophils Absolute Auto 0.8 K/mm3 (0-0.3); Eosinophils Percent Auto 19.4 % (0-4.4); Hematocrit 26.6 % (42.0-52.0); Hemoglobin 8.9 g/dL (14.0-18.0); Immature Granulocyte Absolute 0.01 K/mm3 (0.00-0.031); Immature Granulocyte Percent A 0.2 % (0-0.5); Mean Corpuscular HGB Conc 33.5 g/dl (32-36); Mean Corpuscular Hemoglobin 31.4 pg (26-34); Monocytes Absolute Auto 0.3 K/mm3 (0.1-0.6); Monocytes Percent Auto 6.7 % (2.6-8.5); Neutrophils Absolute Auto 1.5 K/mm3 (1.3-6.7); Platelet Count Result 166 k/mm3 (150-375); Red Blood Count 2.83 M/mm3 (4.6-6.20); Red Cell Distribution Width 17.2 % (11.5-14.5); White Blood Count 4.2 K/mm3 (4.5-10.0)
[2021-02-19] MEDS: AMIODARONE HCL 200 MG TABLET PO (09:43)
[2021-02-19] MEDS: FERROUS SULFATE 324 MG TABLET PO (09:43)
[2021-02-19] MEDS: FOLIC ACID 1 MG TABLET PO (09:44)
[2021-02-19 10:00] LABS: Anion Gap 8 mmol/L (8-16); Blood Urea Nitrogen 11 mg/dL (9-20); Calcium 7.9 mg/dL (8.4-10.2); Carbon Dioxide 22 mmol/L (22-30); Chloride 102 mmol/L (98-107); Estimated CRCL calculation 128 ml/min; Estimated Glomerular Filt Rate > 60; Glucose 105 mg/dL (65-110); Potassium 2.7 mmol/L (3.4-5.0); Sodium 132 mmol/L (137-145)
[2021-02-19] MEDS: POTASSIUM CHLORIDE 20 MEQ PACKET (FOR LIQUID) 40 MEQ PO ×2 (10:36→17:19)
[2021-02-19 11:49] LABS: Glucose Point of Care 186 mg/dl (65-105)
--- NOTE | 2021-02-19 13:57 | WPDGIPROGNO ---
Progress Note: A&P Assessment and Plan (1) Gastrojejunal ulcer with hemorrhage: Code(s): K28.4 - Chronic or unspecified gastrojejunal ulcer with hemorrhage Status: Acute Assessment and Plan: treated endoscopically, continue to monitor for more signs of bleeding on iv protonix (2) Acute GI bleeding: Code(s): K92.2 - Gastrointestinal hemorrhage, unspecified Status: Acute Assessment and Plan: medical treatment and monitor h/h (3) Melena: Code(s): K92.1 - Melena Status: Acute Assessment and Plan: expect to have dark stools for 1-2 more days (4) Chronic liver disease: Code(s): K76.9 - Liver disease, unspecified Status: Acute Assessment and Plan: liver numbers stable (5) Atrial fibrillation: Qualifiers: Atrial fibrillation type: unspecified Qualified Code(s): I48.91 - Unspecified atrial fibrillation Code(s): I48.91 - Unspecified atrial fibrillation Status: Acute Assessment and Plan: by primary team, holding blood thinners in setting of acute bleeding (6) Type 2 diabetes mellitus: Code(s): E11.9 - Type 2 diabetes mellitus without complications Status: Chronic Subjective Date/time seen: 02/19/21 13:57 Interval history: egd yesterday by Dr Garcia revealed large ulcer at gastrojejunal anastomosis treated with epi and gold probe, also gastritis. He is comfortable in ICU, stable but tachycardic. Last BM still dark stool Review of Systems Review of Systems: All systems reviewed & are unremarkable except as noted in HPI and below Exam Const: General: comfortable and no acute distress HENMT: General nose exam: Normal nares present Eyes: Sclera: sclerae normal Neck: Neck: supple Resp: Auscultation: clear to auscultation bilaterally Cardio: Rhythm: abnormal rhythm irregularly irregular GI: GI Palp: Yes Soft to palpation, No Tenderness to palpation present (GI) and No Guarding due to palpation present (GI) Auscultation: normal bowel sounds Skin: General skin exam: no rashes or lesions noted Neuro: Speech: normal speech Motor exam (neuro): Normal motor muscle tone present throughout Extrem: General: normal to inspection Psych: Mental Status: mental status grossly normal Objective Data Vital Signs Vital Signs: Vital Signs - 24 hr 02/18/21 14:45 02/18/21 14:55 02/18/21 15:05 Temperature Pulse Rate 128 H 117 H 131 H Respiratory Rate 21 H 19 19 Blood Pressure 107/61 109/61 118/71 Pulse Oximetry 100 100 100 02/18/21 16:00 02/18/21 18:00 02/18/21 18:40 Temperature 98.4 F Pulse Rate 148 H 128 H 105 H Respiratory Rate 16 Blood Pressure 117/91 H Pulse Oximetry 100 02/18/21 20:00 02/18/21 22:00 02/19/21 00:00 Temperature 98.0 F 98.3 F Pulse Rate 109 H 119 H 114 H Respiratory Rate 19 20 Blood Pressure 124/93 H 108/65 Pulse Oximetry 100 100 02/19/21 02:00 02/19/21 04:00 02/19/21 06:00 Temperature 98.4 F Pulse Rate 123 H 119 H 117 H Respiratory Rate 20 Blood Pressure 119/88 Pulse Oximetry 100 02/19/21 08:00 02/19/21 10:00 02/19/21 12:00 Temperature 97.7 F 97.9 F Pulse Rate 121 H 136 H 118 H Respiratory Rate 20 23 H Blood Pressure 100/76 108/76 Pulse Oximetry 100 100 Intake/Output Intake/Output: Intake & Output 02/16/21 02/17/21 02/18/21 02/19/21 23:59 23:59 23:59 23:59 Intake Total 1999 3450 3171 Output Total 1050 1200 Balance 1999 2400 1971 Meds/Results Medications: Active Medications Generic Name Dose Route Start Last Admin Trade Name Freq PRN Reason Stop Dose Admin Acetaminophen 1,000 mg 02/18/21 21:00 02/18/21 22:03 Acetaminophen 500 Mg Tablet PO 1,000 mg Q8H PRN Administration Mild Pain (1-3) or Fever Amiodarone HCl 200 mg 02/18/21 18:10 02/19/21 09:43 Amiodarone Hcl 200 Mg Tablet PO 200 mg DAILY@0800 JUAN Administration Dextrose 12.5 gm 02/18/21 18:09 Dextrose 50% 25 Gm/50
--- NOTE | 2021-02-19 15:07 | WPDANESPN ---
Anes - Prog Note Post-Op Date/Time: 02/19/21 15:08 Cardiovascular status: normal Respiratory status: normal Airway patency: baseline Mental status: baseline Post-Op hydration status: normal Vital Signs: Last Vital Signs Temp 36.6 C 02/19/21 12:00 Pulse 118 H 02/19/21 12:00 Resp 23 H 02/19/21 12:00 BP 108/76 02/19/21 12:00 Pulse Ox 100 02/19/21 12:00 Pain Score (VAS): 0 I/O: Intake & Output 02/18/21 02/19/21 02/19/21 23:59 07:59 15:59 Intake Total 1000 2061 2110 Output Total 800 775 425 Balance 200 1286 1685 Laboratory Tests 02/19/21 08:00 02/19/21 08:00 02/17/21 02/18/21 02/18/21 19:05 18:23 21:28 WBC RBC Hgb 9.0 L Hct 27.1 L MCV MCH MCHC RDW Plt Count MPV Immature Gran % (Auto) Neut % (Auto) Lymph % (Auto) [place] % (Auto) Eos % (Auto) Baso % (Auto) Lymph # (Auto) [place] # (Auto) Eos # (Auto) Baso # (Auto) Abs Immat Gran (auto) Absolute Neuts (auto) Absolute Nucleated RBC Nucleated RBC % Sodium Potassium Chloride Carbon Dioxide Anion Gap BUN Creatinine Estim Creat Clear Calc Estimated GFR Glucose POC Capillary Glucose 198 H Calcium Blood Type A Positive Antibody Screen Positive Antibody Identification Anti-Gemini Antigen Identification Cancelled ALFONZO, IgG Interpret Positive ALFONZO, Poly Interpret Positive ALFONZO, Complement Interp Negative Enhanced Crossmatch See Detail 02/18/21 02/19/21 02/19/21 22:07 03:05 07:38 WBC RBC Hgb Hct MCV MCH MCHC RDW Plt Count MPV Immature Gran % (Auto) Neut % (Auto) Lymph % (Auto) [place] % (Auto) Eos % (Auto) Baso % (Auto) Lymph # (Auto) [place] # (Auto) Eos # (Auto) Baso # (Auto) Abs Immat Gran (auto) Absolute Neuts (auto) Absolute Nucleated RBC Nucleated RBC % Sodium Potassium Chloride Carbon Dioxide Anion Gap BUN Creatinine Estim Creat Clear Calc Estimated GFR Glucose POC Capillary Glucose 184 H 99 112 H Calcium Blood Type Antibody Screen Antibody Identification Antigen Identification ALFONZO, IgG Interpret ALFONZO, Poly Interpret ALFONZO, Complement Interp Enhanced Crossmatch 02/19/21 02/19/21 02/19/21 08:00 08:00 11:43 WBC 4.2 L RBC 2.83 L Hgb 8.9 L Hct 26.6 L MCV 94.0 MCH 31.4 MCHC 33.5 RDW 17.2 H Plt Count 166 MPV 9.0 Immature Gran % (Auto) 0.2 Neut % (Auto) 36.0 L Lymph % (Auto) 36.0 [place] % (Auto) 6.7 Eos % (Auto) 19.4 H Baso % (Auto) 1.7 H Lymph # (Auto) 1.50 [place] # (Auto) 0.3 Eos # (Auto) 0.8 H Baso # (Auto) 0.1 Abs Immat Gran (auto) 0.01 Absolute Neuts (auto) 1.5 Absolute Nucleated RBC 0.0 Nucleated RBC % 0.0 Sodium 132 L Potassium 2.7 L* Chloride 102 Carbon Dioxide 22 Anion Gap 8 BUN 11 D Creatinine 0.70 Estim Creat Clear Calc 128 Estimated GFR > 60 Glucose 105 POC Capillary Glucose 186 H Calcium 7.9 L Blood Type Antibody Screen Antibody Identification Antigen Identification ALFONZO, IgG Interpret ALFONZO, Poly Interpret ALFONZO, Complement Interp Enhanced Crossmatch Post-procedural complaints: none Patient Feedback: Patient satisfied with anesthetic care.
[2021-02-19 17:26] LABS: Glucose Point of Care 155 mg/dl (65-105)
[2021-02-19 18:05] LABS: Hematocrit 32.4 % (42.0-52.0); Hemoglobin 9.8 g/dL (14.0-18.0)
[2021-02-19 20:53] LABS: Glucose Point of Care 164 mg/dl (65-105)
[2021-02-19] MEDS: INSULIN GLARGINE (*BKC) 100 UNITS/ML 10 UNITS SUB-Q (21:42)
[2021-02-19 23:06] LABS: Potassium 3.7 mmol/L (3.4-5.0)
[2021-02-20] VITALS (20 sets, daily range): BP systolic 98–128; BP diastolic 65–96; PULSE 81–143; RESP 18–20; TEMP 36.1–36.6; O2SAT 97–100
[2021-02-20] MEDS: SODIUM CHLORIDE 0.9% IV 1,000 ML 125 ML IV CONT ×3 (06:06→22:44)
[2021-02-20] MEDS: SUCRALFATE 1 GM TABLET PO ×4 (06:09→21:00)
[2021-02-20 06:14] LABS: Basophils Absolute Auto 0.1 K/mm3 (0.0-0.1); Basophils Percent Auto 1.1 % (0.2-1.2); Eosinophils Percent Auto 18.3 % (0-4.4); Hematocrit 26.3 % (42.0-52.0); Hemoglobin 8.8 g/dL (14.0-18.0); Immature Granulocyte Absolute 0.02 K/mm3 (0.00-0.031); Immature Granulocyte Percent A 0.4 % (0-0.5); Lymphocytes Absolute Auto 1.97 K/mm3 (0.9-3.2); Lymphocytes Percent Auto 36.3 % (18.3-44.2); Mean Corpuscular HGB Conc 33.5 g/dl (32-36); Mean Corpuscular Hemoglobin 31.7 pg (26-34); Mean Corpuscular Volume 94.6 fl (80-100); Mean Platelet Volume 9.3 fl (7.4-10.4); Monocytes Absolute Auto 0.3 K/mm3 (0.1-0.6); Monocytes Percent Auto 5.9 % (2.6-8.5); Neutrophils Absolute Auto 2.1 K/mm3 (1.3-6.7); Platelet Count Result 190 k/mm3 (150-375); Red Blood Count 2.78 M/mm3 (4.6-6.20); Red Cell Distribution Width 17.2 % (11.5-14.5); White Blood Count 5.4 K/mm3 (4.5-10.0)
[2021-02-20] MEDS: ACETAMINOPHEN 500 MG TABLET 1000 MG PO (06:16)
[2021-02-20] MEDS: LEVOTHYROXINE SODIUM 50 MCG TABLET PO (06:17)
[2021-02-20 06:29] LABS: Anion Gap 7 mmol/L (8-16); Blood Urea Nitrogen 5 mg/dL (9-20); Calcium 7.6 mg/dL (8.4-10.2); Carbon Dioxide 21 mmol/L (22-30); Chloride 105 mmol/L (98-107); Estimated CRCL calculation 128 ml/min; Estimated Glomerular Filt Rate > 60; Glucose 99 mg/dL (65-110); Potassium 3.3 mmol/L (3.4-5.0); Sodium 133 mmol/L (137-145)
[2021-02-20] MEDS: FERROUS SULFATE 324 MG TABLET PO (07:57)
[2021-02-20] MEDS: AMIODARONE HCL 200 MG TABLET PO (07:57)
[2021-02-20] MEDS: FOLIC ACID 1 MG TABLET PO (07:58)
[2021-02-20 08:23] LABS: Magnesium 1.3 mg/dL (1.6-2.3)
[2021-02-20 08:44] LABS: Glucose Point of Care 93 mg/dl (65-105)
--- NOTE | 2021-02-20 08:53 | WPDGIPROGNO ---
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 (2) Acute GI bleeding: Code(s): K92.2 - Gastrointestinal hemorrhage, unspecified Status: Acute Assessment and Plan: medical treatment and monitor h/h (3) Melena: Code(s): K92.1 - Melena Status: Acute (4) Chronic liver disease: Code(s): K76.9 - Liver disease, unspecified Status: Acute Assessment and Plan: liver numbers stable (5) Atrial fibrillation: Qualifiers: Atrial fibrillation type: unspecified Qualified Code(s): I48.91 - Unspecified atrial fibrillation Code(s): I48.91 - Unspecified atrial fibrillation Status: Acute Assessment and Plan: by primary team, holding blood thinners in setting of acute bleeding (6) Type 2 diabetes mellitus: Code(s): E11.9 - Type 2 diabetes mellitus without complications Status: Chronic Subjective Date/time seen: 02/20/21 08:53 Interval history: he was moved to floor yesterday, no more signs of bleeding and no recent BM. He is hungry Review of Systems Review of Systems: All systems reviewed & are unremarkable except as noted in HPI and below Exam Const: General: comfortable and no acute distress HENMT: General nose exam: Normal nares present Eyes: Sclera: sclerae normal Neck: Neck: supple Resp: Auscultation: clear to auscultation bilaterally Cardio: Rhythm: abnormal rhythm irregularly irregular GI: GI Palp: Yes Soft to palpation, No Tenderness to palpation present (GI) and No Guarding due to palpation present (GI) Auscultation: normal bowel sounds Skin: General skin exam: no rashes or lesions noted Neuro: Speech: normal speech Motor exam (neuro): Normal motor muscle tone present throughout Extrem: General: normal to inspection Psych: Mental Status: mental status grossly normal Objective Data Vital Signs Vital Signs: Vital Signs - 24 hr 02/19/21 10:00 02/19/21 12:00 02/19/21 14:00 Temperature 97.9 F Pulse Rate 136 H 118 H 104 H Respiratory Rate 23 H Blood Pressure 108/76 Pulse Oximetry 100 02/19/21 16:00 02/19/21 18:00 02/19/21 19:53 Temperature 98.4 F 98.2 F Pulse Rate 118 H 112 H 125 H Respiratory Rate 20 18 Blood Pressure 104/77 113/61 Pulse Oximetry 100 100 02/19/21 20:00 02/19/21 22:00 02/20/21 00:00 Temperature 98 F Pulse Rate 112 H 111 H 128 H Respiratory Rate 18 Blood Pressure 122/96 H Pulse Oximetry 99 02/20/21 02:00 02/20/21 04:00 02/20/21 05:56 Temperature 96.9 F L Pulse Rate 121 H 122 H 116 H Respiratory Rate 18 Blood Pressure 101/68 Pulse Oximetry 100 02/20/21 07:57 Temperature Pulse Rate 125 H Respiratory Rate Blood Pressure Pulse Oximetry Intake/Output Intake/Output: Intake & Output 02/17/21 02/18/21 02/19/21 02/20/21 23:59 23:59 23:59 23:59 Intake Total 1999 3450 7131 1850 Output Total 1050 1925 450 Balance 1999 2400 5206 1400 Meds/Results Medications: Active Medications Generic Name Dose Route Start Last Admin Trade Name Freq PRN Reason Stop Dose Admin Acetaminophen 1,000 mg 02/18/21 21:00 02/20/21 06:16 Acetaminophen 500 Mg Tablet PO 1,000 mg Q8H PRN Administration Mild Pain (1-3) or Fever Amiodarone HCl 200 mg 02/18/21 18:10 02/20/21 07:57 Amiodarone Hcl 200 Mg Tablet PO 200 mg DAILY@0800 [facility] Administration Dextrose 12.5 gm 02/18/21 18:09 Dextrose 50% 25 Gm/50 Ml Syringe IV PUSH PRN PRN Hypoglycemia Protocol Ergocalciferol 50,000 unit 02/23/21 09:00 Ergocalciferol 50,000 Unit Capsule PO WEEKLY [facility]
[2021-02-20] MEDS: PANTOPRAZOLE SODIUM IV 40 MG VIAL IV PUSH ×2 (10:00→21:00)
--- NOTE | 2021-02-20 10:29 | PM.IMPN ---
Progress Note: A&P Assessment and Plan (1) Acute GI bleeding: Code(s): K92.2 - Gastrointestinal hemorrhage, unspecified Status: Acute Assessment and Plan: Acute GI bleeding in the setting of recurrent GI bleed secondary to ulcers secondary to NSAIDs use, in remission. Patient is able dynamic least stable. There is no sign of recurrent bleeding. Blood pressure this morning was 128/89. EGD on 02/20 revealed large ulcer at gastrojejunal anastomosis treated with epi and gold probe by Dr Garcia, also gastritis. EGD reports intestinal ulcers and gastritis. A few ulcers ranging in size from 6 mm to 30 mm were visualized in the proximal jejunum. The ulcers had an adherent clot. An injection of epinephrine was administered to control bleeding successfully. The lesion was cauterized. Moderate issues are causing gastritis was seen in the body of the stomach in the antrum. The gastritis had a moderate edematous change. Differential diagnosis includes gastric ulcer/PUD/gastritis. No reported history of ongoing NSAIDs use. Patient was unknowingly recently placed on Plavix which could be a culprit. Hold Plavix. Continue daily CBC. Currently hemoglobin Drop 1 point from 9.8 yesterday to 8.8 today. Repeat hemoglobin and hematocrit this afternoon. There is no indication for blood transfusion. We will continue close monitoring. Continue PPI. Advance diet as tolerated. # (2) Type 2 diabetes mellitus: Code(s): E11.9 - Type 2 diabetes mellitus without complications Status: Chronic Assessment and Plan: Hold metformin. Start Lantus coverage. Insulin sliding scale. Fasting blood sugar is 99. Accu-Cheks in the 93-164 range. (3) Essential hypertension: Code(s): I10 - Essential (primary) hypertension Status: Chronic Assessment and Plan: Chronic hypertension, presenting with acute GI bleeding and hypotension; hold antihypertensive. Current BP in the 101/68-128/89 range. Continue to hold home blood pressure medications. (4) Atrial fibrillation: Qualifiers: Atrial fibrillation type: unspecified Qualified Code(s): I48.91 - Unspecified atrial fibrillation Code(s): I48.91 - Unspecified atrial fibrillation Status: Acute Assessment and Plan: Atrial fibrillation with rapid ventricular rate likely related to underlying GI bleed rate better after fluid resuscitation in the ER. Improving heart rates while on amiodarone. He Currently remains hypotensive. Hold beta blockers. Heart rate in the 130s on telemetry today. Increase amiodarone to 400 mg p.o. daily. Consult Cardiology. (5) Melena: Code(s): K92.1 - Melena Status: Acute Assessment and Plan: No recent black stools.Continue close CBC monitoring. (6) History of Deidre-en-Y gastric bypass: Code(s): Z98.84 - Bariatric surgery status Status: Inactive Assessment and Plan: History of Deidre-en-Y bypass in 2006. Currently patient meets criteria for morbid obesity. Five small small meals per day. Monitor caloric intake. Increase physical activity with daily physical therapy. (7) Obesity: Code(s): E66.9 - Obesity, unspecified Status: Acute Assessment and Plan: Caloric restriction Daily exercise. Additional Plan # DVT prophylaxis SCDs # full code status Subjective Date/time seen: 02/20/21 10:29 S: Patient is examined at the bedside. He had no specific complaints. There is no additional sign of bleeding, no recent BM. Patient has a good appetite. On telemetry he remains tachycardic in the 130s. Review of Systems Review of Systems: All systems reviewed & are unremarkable except as noted in HPI and below Constitutional: Constitutional: Reports fatigue and Reports weakness Neurologic: Reports weakness Endocrine: Endocrine: Reports fatigue Exam Narrative: GENERAL: Ill-appearing, well-nourished, and in no acute distress. HEAD: Normocephali
--- NOTE | 2021-02-20 10:50 | ECG_ITS ---
Measurements Intervals [place] Rate: 130 P: IA: 0 QRS: 17 QRSD: 98 T: -29 QT: 351 QTc: 516 Interpretive Statements ATRIAL FIBRILLATION WITH RAPID VENTRICULAR RESPONSE LOW QRS VOLTAGE IN PRECORDIAL LEADS BORDERLINE T WAVE ABNORMALITY- INF/HIGH LAT LEADS BASELINE ARTIFACT- II, III, AVF ABNORMAL ECG Electronically Signed On 02-20-2021 16:16:56 CDT by Saturnino Bowling D.O.
--- NOTE | 2021-02-20 10:51 | PM.CNCAR ---
Assessment and Plan Assessment and plan (1) Atrial fibrillation: Qualifiers: Atrial fibrillation type: unspecified Qualified Code(s): I48.91 - Unspecified atrial fibrillation Code(s): I48.91 - Unspecified atrial fibrillation Status: Acute Assessment and Plan: His atrial fibrillation is chronic from what I can gather but his heart rate is elevated and uncontrolled at this point. There has been discussion of a Watchman device as an outpatient which I a.m. in agreement with especially given his GI bleed history. Discontinue clopidogrel. Also will discontinue his amiodarone. Do not necessarily want him converted to sinus rhythm given his atrial fibrillation of unknown duration to reduce stroke risk. He is on chronic metoprolol at home and this has been withheld. Certainly beta-lida withdrawal can lead to tachycardia also. Will start him on metoprolol tartrate 25 mg p.o. b.i.d.. Will check an EKG. If his heart rate remains difficult to control, will order an echocardiogram. He already has an echo and a stress test scheduled as an outpatient in the near future though through his primary mailhouse operator. (2) Chronic liver disease: Code(s): K76.9 - Liver disease, unspecified Status: Acute (3) Melena: Code(s): K92.1 - Melena Status: Acute Assessment and Plan: Stopping clopidogrel (4) Electrolyte imbalance: Code(s): E87.8 - Other disorders of electrolyte and fluid balance, not elsewhere classified Status: Acute Assessment and Plan: Potassium chloride 40 mEq x1 is already given. Will also replace magnesium with 3 g IV x1. (5) Essential hypertension: Code(s): I10 - Essential (primary) hypertension Status: Chronic Assessment and Plan: at goal History of Present Illness History of Present Illness Consult date/time: 02/20/21 10:51 Requesting physician: Renae Varela MD Consult reason: atrial fibrillation Reason For Visit: Upper GI Bleed, Afib RVR Narrative: Date of service 02/20/2021 Reason for consultation atrial fibrillation Requesting provider Dr. Varela History: Patient is a 60-year-old male who has a history of atrial fibrillation. He sees outside mailhouse operator for his atrial fibrillation. He is not on anticoagulation but has recently started on clopidogrel. He presented to this hospital because of melena for 1 week. He has a history of Deidre-en-Y bypass in 2006 as well as history of GI bleed. He is not on anticoagulation because of history of GI bleed. He also has hypertension diabetes and arthritis. He has had many of his oral medications withheld. Amiodarone orally was started but despite the amiodarone his heart rate has still been high. He takes metoprolol at home but this has not been given. Heart rates have been in the 120s but he is tolerating them well. He denies any chest pain, shortness breath, syncope, presyncope, paroxysmal nocturnal dyspnea, orthopnea, edema palpitations. Review of Systems Review of Systems: All systems reviewed & are unremarkable except as noted in HPI and below Constitutional: Constitutional: Denies weakness Eyes: Eyes: Denies blurry vision ENT: Reports Normal hearing present Cardiovascular: Cardiovascular: Denies chest pain and Denies palpitations Respiratory: Respiratory: Denies dyspnea Gastrointestinal: Comments: Melena Genitourinary: Genitourinary: Denies dysuria Musculoskeletal: Musculoskeletal: Denies back pain and Denies neck pain Integumentary/Breasts: Skin/Breast: Denies dry skin Neurologic: Denies headache(s) Psychiatric: Psychiatric: Denies anxiety and Denies confusion Endocrine: Endocrine: Denies fatigue Hematologic/Lymphatic: Hematologic/Lymphatic: Denies easy bleeding Allergic/Immunologic: Allergic/Immunologic: Denies GI upset with certain foods PMFSH Past Medical History Medical History Acute G
[2021-02-20] MEDS: METOPROLOL TARTRATE 25 MG TABLET PO ×2 (11:25→20:59)
[2021-02-20 11:54] LABS: Glucose Point of Care 123 mg/dl (65-105)
[2021-02-20] MEDS: MAGNESIUM SULFATE 3GM/D5W100ML 3 GM/100 ML BAG IVPB (13:13)
[2021-02-20 16:05] LABS: Glucose Point of Care 145 mg/dl (65-105)
[2021-02-20 19:53] LABS: Glucose Point of Care 193 mg/dl (65-105)
[2021-02-20] MEDS: INSULIN GLARGINE (*BKC) 100 UNITS/ML 10 UNITS SUB-Q (21:00)
[2021-02-21] VITALS (8 sets, daily range): BP systolic 92–119; BP diastolic 65–86; PULSE 68–99; RESP 18–20; TEMP 36.2–36.6; O2SAT 100
[2021-02-21 05:09] LABS: Basophils Absolute Auto 0.1 K/mm3 (0.0-0.1); Basophils Percent Auto 1.1 % (0.2-1.2); Eosinophils Percent Auto 16.1 % (0-4.4); Hematocrit 28.7 % (42.0-52.0); Hemoglobin 9.9 g/dL (14.0-18.0); Immature Granulocyte Absolute 0.02 K/mm3 (0.00-0.031); Immature Granulocyte Percent A 0.3 % (0-0.5); Lymphocytes Percent Auto 36.9 % (18.3-44.2); Mean Corpuscular HGB Conc 34.5 g/dl (32-36); Mean Corpuscular Hemoglobin 32.7 pg (26-34); Mean Corpuscular Volume 94.7 fl (80-100); Mean Platelet Volume 9.5 fl (7.4-10.4); Monocytes Absolute Auto 0.3 K/mm3 (0.1-0.6); Monocytes Percent Auto 5.5 % (2.6-8.5); Neutrophils Absolute Auto 2.5 K/mm3 (1.3-6.7); Neutrophils Percent Auto 40.1 % (45.5-73.1); Platelet Count Result 219 k/mm3 (150-375); Red Blood Count 3.03 M/mm3 (4.6-6.20); Red Cell Distribution Width 17.6 % (11.5-14.5); White Blood Count 6.2 K/mm3 (4.5-10.0)
[2021-02-21 05:19] LABS: Anion Gap 6 mmol/L (8-16); Blood Urea Nitrogen 6 mg/dL (9-20); Calcium 7.8 mg/dL (8.4-10.2); Carbon Dioxide 21 mmol/L (22-30); Chloride 106 mmol/L (98-107); Estimated CRCL calculation 114 ml/min; Estimated Glomerular Filt Rate > 60; Glucose 94 mg/dL (65-110); Magnesium 1.6 mg/dL (1.6-2.3); Potassium 3.7 mmol/L (3.4-5.0); Sodium 133 mmol/L (137-145)
[2021-02-21] MEDS: SODIUM CHLORIDE 0.9% IV 1,000 ML 125 ML IV CONT (06:29)
[2021-02-21] MEDS: LEVOTHYROXINE SODIUM 50 MCG TABLET PO (06:29)
[2021-02-21] MEDS: SUCRALFATE 1 GM TABLET PO ×2 (06:29→11:51)
--- NOTE | 2021-02-21 07:32 | WPDGIPROGNO ---
Progress Note: A&P Assessment and Plan (1) Gastrojejunal ulcer with hemorrhage: Code(s): K28.4 - Chronic or unspecified gastrojejunal ulcer with hemorrhage Status: Acute Assessment and Plan: There has been no further bleeding. We will discharge him on pantoprazole and sucralfate. I told he will need to stay on the sucralfate indefinitely. He will follow-up with his turnaround planner / [employer] systems administrator Dr. Joseph. (2) Atrial fibrillation: Qualifiers: Atrial fibrillation type: unspecified Qualified Code(s): I48.91 - Unspecified atrial fibrillation Code(s): I48.91 - Unspecified atrial fibrillation Status: Acute Assessment and Plan: He is going to see his platen press operator apprentice soon and they will come up with a plan to do with his atrial fibrillation Subjective Date/time seen: 02/21/21 07:32 no further sign of bleeding. His counts are stable. EKG does show atrial fibrillation with rapid ventricular rate. He states that he specifically told his platen press operator apprentice that he could not be on a blood thinner which is why he is not on Coumadin, other meds such as Xarelto. He will be seen his platen press operator apprentice in a week or so. Review of Systems Review of Systems: All systems reviewed & are unremarkable except as noted in HPI and below Exam Const: General: cooperative and no acute distress Nutritional Appearance: well nourished Cardio: Rhythm: abnormal rhythm irregularly irregular GI: GI Palp: No abdominal tenderness and Yes Soft to palpation Auscultation: normal bowel sounds Objective Data Vital Signs Vital Signs: Vital Signs - 24 hr 02/20/21 07:57 02/20/21 08:00 02/20/21 08:59 Temperature 36.6 C Pulse Rate 125 H 139 H 120 H Respiratory Rate 20 Blood Pressure 128/89 Pulse Oximetry 99 02/20/21 09:29 02/20/21 10:00 02/20/21 11:25 Temperature Pulse Rate 130 H 132 H Respiratory Rate Blood Pressure Pulse Oximetry 97 02/20/21 12:00 02/20/21 12:32 02/20/21 14:00 Temperature 36.6 C Pulse Rate 143 H 120 H 83 Respiratory Rate 20 Blood Pressure 106/82 Pulse Oximetry 100 02/20/21 16:00 02/20/21 16:44 02/20/21 18:00 Temperature 36.5 C Pulse Rate 81 88 103 H Respiratory Rate 18 Blood Pressure 108/82 Pulse Oximetry 100 02/20/21 18:59 02/20/21 20:00 02/20/21 20:59 Temperature 36.5 C 36.2 C L Pulse Rate 88 94 86 Respiratory Rate 18 18 Blood Pressure 108/82 98/65 L Pulse Oximetry 100 99 02/20/21 22:00 02/21/21 00:00 02/21/21 02:00 Temperature 36.6 C Pulse Rate 86 84 74 Respiratory Rate 20 Blood Pressure 92/65 L Pulse Oximetry 100 02/21/21 04:00 02/21/21 06:00 Temperature 36.2 C L Pulse Rate 97 92 Respiratory Rate 20 Blood Pressure 109/76 Pulse Oximetry 100 Intake/Output Intake/Output: Intake & Output 02/18/21 02/19/21 02/20/21 02/21/21 23:59 23:59 23:59 23:59 Intake Total 3450 7131 5570 1000 Output Total 1050 1925 1050 900 Balance 2400 5206 4520 100 Meds/Results Medications: Active Medications Generic Name Dose Route Start Last Admin Trade Name Freq PRN Reason Stop Dose Admin Acetaminophen 1,000 mg 02/18/21 21:00 02/20/21 06:16 Acetaminophen 500 Mg Tablet PO 1,000 mg Q8H PRN Administration Mild Pain (1-3) or Fever Dextrose 12.5 gm 02/18/21 18:09 Dextrose 50% 25 Gm/50 Ml Syringe IV PUSH PRN PRN Hypoglycemia Protocol Ergocalciferol 50,000 unit 02/23/21 09:00 Ergocalciferol 50,000 Unit Capsule PO WEEKLY [facility] Ferrous Sulfate 324 mg 02/19/21 08:00 02/20/21 07:57 Ferrous Sulfate 324 Mg Tablet PO 324 mg DAILY@0800 [facility] Administration Folic Acid 1 mg 02/19/21 09:00 02/20/21 07:58 Folic Acid 1 Mg Tablet PO 1 mg DAILY [facility] Administration Glucagon 1 mg 02/18/21 18:09 Glucagon For Inj 1 Mg Vial IM PRN PRN Hypoglycemia Protocol Glucose 15 gm 02/18/21 18:09 Glucose Oral Gel 15 Gm Of Glucse
[2021-02-21] MEDS: METOPROLOL TARTRATE 25 MG TABLET PO (08:06)
[2021-02-21] MEDS: FERROUS SULFATE 324 MG TABLET PO (08:06)
[2021-02-21] MEDS: FOLIC ACID 1 MG TABLET PO (08:07)
[2021-02-21] MEDS: PANTOPRAZOLE SODIUM IV 40 MG VIAL IV PUSH (08:07)
[2021-02-21 08:53] LABS: Glucose Point of Care 77 mg/dl (65-105)
--- NOTE | 2021-02-21 11:33 | PM.PNCARD ---
Progress Note: A&P Assessment and Plan (1) Atrial fibrillation: Qualifiers: Atrial fibrillation type: unspecified Qualified Code(s): I48.91 - Unspecified atrial fibrillation Code(s): I48.91 - Unspecified atrial fibrillation Status: Acute Assessment and Plan: His atrial fibrillation is chronic from what I can gather but his heart rate is elevated and uncontrolled at this point. There has been discussion of a Watchman device as an outpatient which I a.m. in agreement with especially given his GI bleed history. Heart rate is controlled now that metoprolol has been resumed. (2) Chronic liver disease: Code(s): K76.9 - Liver disease, unspecified Status: Acute (3) Melena: Code(s): K92.1 - Melena Status: Acute Assessment and Plan: Stopping clopidogrel (4) Electrolyte imbalance: Code(s): E87.8 - Other disorders of electrolyte and fluid balance, not elsewhere classified Status: Acute Assessment and Plan: Magnesium 2 g IV x1 as his magnesium is still low (5) Essential hypertension: Code(s): I10 - Essential (primary) hypertension Status: Chronic Assessment and Plan: at goal He is several L positive since admission. I am going to give him 40 mg of IV Lasix x1. DC IV fluids. Subjective Date/time seen: 02/21/21 11:33 Interval history: 60-year-old admitted for black stools. Also had atrial fibrillation which is reason for cardiology consultation Date of service 02/21/2021: His heart rate is much better now he is back on his metoprolol. Is normal. No chest pain or shortness of breath Review of Systems Review of Systems: All systems reviewed & are unremarkable except as noted in HPI and below Constitutional: Constitutional: Denies fatigue, Denies headache(s) and Denies weakness Eyes: Eyes: Denies blurry vision ENT: Reports Normal hearing present, Denies headache(s) and Denies neck pain Cardiovascular: Cardiovascular: Denies chest pain, Denies palpitations and Denies dyspnea Respiratory: Respiratory: Denies dyspnea Genitourinary: Genitourinary: Denies dysuria Musculoskeletal: Musculoskeletal: Denies back pain and Denies neck pain Integumentary/Breasts: Skin/Breast: Denies dry skin Neurologic: Reports Normal hearing present, Denies confusion, Denies headache(s) and Denies weakness Psychiatric: Psychiatric: Denies anxiety and Denies confusion Endocrine: Endocrine: Denies fatigue and Denies palpitations Hematologic/Lymphatic: Hematologic/Lymphatic: Denies easy bleeding Allergic/Immunologic: Allergic/Immunologic: Denies GI upset with certain foods Exam Narrative: Alert oriented appears to be in no acute distress. Appears stated age Const: General: comfortable and no acute distress; No confusion Orientation/consciousness: No confusion HENMT: General nose exam: Normal nares present Eyes: Sclera: sclerae normal Neck: Neck: supple and no JVD Chest: Other: No reproducible chest wall pain to palpation Resp: Auscultation: clear to auscultation bilaterally Cardio: Rate: tachycardic Rhythm: abnormal rhythm irregularly irregular GI: Inspection: normal to inspection Skin: General skin exam: no erythema Neuro: General: No confusion Cranial nerves: Yes Normal hearing present Cognition (Neuro): normal cognition Speech: normal speech Extrem: General: normal to inspection and no edema Psych: Mental Status: mental status grossly normal Objective Data Vital Signs Vital Signs: Vital Signs - 24 hr 02/20/21 12:00 02/20/21 12:32 02/20/21 14:00 Temperature 36.6 C Pulse Rate 143 H 120 H 83 Respiratory Rate 20 Blood Pressure 106/82 Pulse Oximetry 100 02/20/21 16:00 02/20/21 16:44 02/20/21 18:00 Temperature 36.5 C Pulse Rate 81 88 103 H Respiratory Rate 18 Blood Pressure 108/82 Pulse Oximetry 100 02/20/21 18:59 02/20/21 20:00 02/20/21 20:59 Temperature 36.5 C 3
[2021-02-21] MEDS: FUROSEMIDE INJ 40 MG/4 ML VIAL IV PUSH (11:51)
[2021-02-21] MEDS: MAGNESIUM SULF 2 GM/WATER 50ML 2 GM/50 ML BAG IVPB (11:51)
--- NOTE | 2021-02-21 12:07 | PM.DS ---
DS: Admitting Diagnosis Discharge Date 02/21/21 Admitting Diagnosis (1) Acute GI bleeding: Code(s): K92.2 - Gastrointestinal hemorrhage, unspecified Status: Acute (2) Type 2 diabetes mellitus: Code(s): E11.9 - Type 2 diabetes mellitus without complications Status: Chronic (3) Essential hypertension: Code(s): I10 - Essential (primary) hypertension Status: Chronic (4) Atrial fibrillation: Qualifiers: Atrial fibrillation type: unspecified Qualified Code(s): I48.91 - Unspecified atrial fibrillation Code(s): I48.91 - Unspecified atrial fibrillation Status: Acute (5) Melena: Code(s): K92.1 - Melena Status: Acute Additional Plan # melena/acute GI bleed Protonix drip no prior history of esophageal varices will hold off on octreotide differential diagnosis gastric ulcer/PUD/gastritis. No reported history of ongoing NSAIDs use. Recently placed on Plavix which could be a culprit. Hold Plavix Monitor H&H every 6 hours. 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 Hold [place] a. 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 Patient is able dynamic least stable. There is no sign of recurrent bleeding. Blood pressure this morning was 128/89. EGD on 02/20 revealed large ulcer at gastrojejunal anastomosis treated with epi and gold probe by Dr Garcia, also gastritis. EGD reports intestinal ulcers and gastritis. A few ulcers ranging in size from 6 mm to 30 mm were visualized in the proximal jejunum. The ulcers had an adherent clot. An injection of epinephrine was administered to control bleeding successfully. The lesion was cauterized. Moderate issues are causing gastritis was seen in the body of the stomach in the antrum. The gastritis had a moderate edematous change. Differential diagnosis includes gastric ulcer/PUD/gastritis. No reported history of ongoing NSAIDs use. Patient was unknowingly recently placed on Plavix which could be a culprit. Hold Plavix. Continue daily CBC. Currently hemoglobin Drop 1 point from 9.8 yesterday to 8.8 today. Repeat hemoglobin and hematocrit this afternoon. There is no indication for blood transfusion. We will continue close monitoring. Continue PPI. Advance diet as tolerated. # (2) Type 2 diabetes mellitus: Code(s): E11.9 - Type 2 diabetes mellitus without complications Status: Chronic Assessment and Plan: Hold metformin. Start Lantus coverage. Insulin sliding scale. Fasting blood sugar is 99. Accu-Cheks in the 93-164 range. (3) Essential hypertension: Code(s): I10 - Essential (primary) hypertension Status: Chronic Assessment and Plan: Chronic hypertension, presenting with acute GI bleeding and hypotension; hold antihypertensive. Current BP in the 101/68-128/89 range. Continue to hold home blood pressure medications. (4) Atrial fibrillation: Qualifiers: Atrial fibrillation type: unspecified Qualified Code(s): I48.91 - Unspecified atrial fibrillation Code(s): I48.91 - Unspecified atrial fibrillation Status: Acute Assessment and Plan: Atrial fibrillation with rapid ventricular rate likely related to underlying GI bleed rate better after fluid resuscitatio
[2021-02-21 12:58] LABS: Glucose Point of Care 126 mg/dl (65-105)
== END 2021-02-21 14:05 | disposition home or self-care (01) | DRG 379 ==
LOC: ANHED 20:54 → ANHICU 02-18 08:06 → ANHIMU 02-21 12:08 → ANHICU 02-24 14:36 → ANHIMU 02-24 14:36
PROVIDERS: Internal Medicine; Internal Medicine Gastroenterology; Admitting Provider Internal Medicine; Emergency Provider Emergency Medicine; PCP Internal Medicine; Visit Provider Internal Medicine
PROC: 0DJ08ZZ Inspection of Upper Intestinal Tract, Via Natural or Artificial Opening Endoscopic (ICD-10-PCS; CPT 43235; principal; 2021-02-18 14:00)
DX: K28.4 Chronic or unspecified gastrojejunal ulcer with hemorrhage (principal); K29.20 Alcoholic gastritis without bleeding; K76.9 Liver disease, unspecified; I48.91 Unspecified atrial fibrillation; E87.6 Hypokalemia; I10 Essential (primary) hypertension; E11.9 Type 2 diabetes mellitus without complications; M19.90 Unspecified osteoarthritis, unspecified site; E66.9 Obesity, unspecified; Z72.89 Other problems related to lifestyle; Z79.84 Long term (current) use of oral hypoglycemic drugs; Z87.891 Personal history of nicotine dependence; Z98.84 Bariatric surgery status
CPT/HCPCS: 36415; 80048; 80053; 82948; 83735; 84132; 85014; 85018; 85025; 85610; 85730; 86850; 86860; 86870; 86880; 86900; 86901; 86902; 86922; 87081; 93005; 96361; 96365; 96366; 96376; 97162; 99285; A9270; C9113; J0131; J0171; J1815; J1940; J2704; J3475; J3480; J7030; J7060; J7120

== ENCOUNTER 2021-03-09 10:42 | Emergency (ER) | payer BC, SELFPAY ==
[2021-03-09 10:59] VITALS: BP 114/87; PULSE 107; RESP 18; TEMP 36.4; O2SAT 100
--- NOTE | 2021-03-09 11:46 | ED.SKABFB ---
HPI - Skin/Abscess/Foreign Bdy General Chief complaint: Skin/Abscess/Foreign Body Stated complaint: BLISTER TO BOTTOM ON R FOOT Source: patient History of Present Illness HPI narrative: This is a 60-year-old male that presented to urgent care with complaints of a blister that he has had for approximately 1 month on his right lower foot. According to patient he used soap and water and dressed it with toilet paper while at home. Patient is a diabetic he does not have a production weigher I did inform patient that he will need to closely follow-up with a production weigher after this procedure to ensure there is no further infection in avoid amputation. Patient notes that it does not hurt his foot when he walks on it. The patient denies SOB, CP, palpitation, extremity numbness, lightheadedness, dizziness, constipation, diarrhea, chills, or fever. MD complaint: abscess/boil Location: R hand Related Data Home Medications Medication Instructions Recorded Confirmed Farxiga 5 mg PO DAILY 02/17/21 02/18/21 clopidogrel [Plavix] 75 mg PO DAILY 02/17/21 02/20/21 ergocalciferol (vitamin D2) 1,250 mcg PO WEEKLY 02/17/21 02/18/21 folic acid 1 mg PO DAILY 02/17/21 02/18/21 furosemide 20 mg PO DAILY 02/17/21 02/18/21 lactulose 10 ml PO DAILY 02/17/21 02/18/21 levothyroxine 50 mcg PO DAILY 02/17/21 02/18/21 metformin 500 mg PO DAILY 02/17/21 02/18/21 sertraline 50 mg PO DAILY 02/17/21 02/18/21 spironolactone 25 mg PO DAILY 02/17/21 02/18/21 Allergies Allergy/AdvReac Type Severity Reaction Status Date / Time tetanus toxoid, adsorbed Allergy Hives Verified 02/18/21 13:26 Review of Systems Review of Systems: A 14 organ system Review of Systems was performed and pertinent positives included in the HPI, otherwise remaining ROS is negative. [facility] Past Medical History Medical History Acute GI bleeding Atrial fibrillation Essential hypertension Gastrojejunal ulcer with hemorrhage Obesity Right ankle injury Type 2 diabetes mellitus Upper gastrointestinal bleed Surgical History Surgical History History of back surgery History of Deidre-en-Y gastric bypass Family History Family History Mother Ovarian cancer Throat cancer Diabetes mellitus Congestive heart failure Chronic obstructive pulmonary disease Social History Social History Social History: Patient is active, independent. 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 HEAD: normocephalic, atraumatic. EYES: PERRL. Sclera clear/white. Vision is grossly intact. EARS: External ears normal, auditory canals clear and without drainage, TMs normal without perforation. Hearing grossly intact. NOSE: External nose normal with no obvious nasal discharge, nares without redness, no rhinorrhea. THROAT: Mucous membranes moist, posterior pharynx clear. NECK: Neck supple, non-tender without lymphadenopathy, masses or thyromegaly. CARDIOVASCULAR: Regular rate and rhythm without murmurs, gallops, or rubs. RESPIRATORY: Clear to auscultation. Breath sounds equal bilaterally. No wheezes, rales, or rhonchi. GASTROINTESTINAL: Abdomen soft, non-tender, nondistended. Bowel sounds are active. No hepato-splenomegaly, or palpable masses. No guarding. SKIN: A elevated hematoma blister to the right metatarsal sole of foot approximately 2 x 2 cm in size NEURO: awake, aler
== END 2021-03-09 12:29 | disposition home or self-care (01) ==
PROVIDERS: Emergency Provider Nurse Practitioner; PCP Family Medicine
DX: L02.611 Cutaneous abscess of right foot (principal); L03.115 Cellulitis of right lower limb; I48.91 Unspecified atrial fibrillation; I10 Essential (primary) hypertension; E11.9 Type 2 diabetes mellitus without complications; E66.9 Obesity, unspecified; Z68.34 Body mass index [BMI] 34.0-34.9, adult; Z87.891 Personal history of nicotine dependence; Z79.01 Long term (current) use of anticoagulants
CPT/HCPCS: 10060; 99213; G0463